=== PATIENT | female | born 1970 | race Caucasian/White ===

== ENCOUNTER → 2017-06-06 | Outpatient (CLI) | payer OTHER ==
--- NOTE | 2017-06-06 14:54 | REPMRS ---
Patient History The patient states she had a clinical breast exam in 06/14 Patient is nulliparous. Family history of prostate cancer in father at age 50 or over, prostate cancer in maternal grandfather at age 50 or over, breast cancer in maternal grandmother at age 50 or over, and prostate cancer in paternal uncle at age 50 or over. Benign cyst aspiration of the left breast, 2005. Digital Woman Screen Mammo: June 06, 2017 - Exam #: [id number] Bilateral CC and MLO view(s) were taken. Technologist: Sondra Fernández, Technologist Prior study comparison: June 05, 2016, digital woman screen mammo performed at [facility]. March 22, 2015, digital woman screen mammo performed at [facility]. December 22, 2013, digital woman screen mammo performed at [facility]. FINDINGS: The breast tissue is heterogeneously dense. This may lower the sensitivity of mammography. There is a moderate amount of heterogeneously dense fibroglandular tissue which is fairly symmetric. There is no interval development of dominant mass, architectural distortion, or clustered microcalcification typical of malignancy. There has been no change in the appearance of the mammogram from the prior studies. ASSESSMENT: BI-RADS/ACR category 1 mammogram. Negative. Recommendation Routine screening mammogram of both breasts in 1 year (for women over age 40). This patient's Lifetime Breast Cancer RIsk is estimated at 19 %. Annual screening Breast MRI scanniing is recommended for patient's whose lifetime risk assessment is over 20%. This mammogram was interpreted with the aid of an FDA-approved computer-aided dectection system. Electronically Signed By: Darnell Ying MD 06/06/17 [id number]
== END ==
LOC: M WHC 10:54
PROVIDERS: ATTEND Nurse Practitioner Women's Health
DX: Z12.31 Encounter for screening mammogram for malignant neoplasm of breast (principal)

== ENCOUNTER → 2018-06-08 | Outpatient (CLI) | payer SELFPAY ==
[2018-06-08 17:27] LABS: HEMATOCRIT 40.9 % (36.0-47.0); HEMOGLOBIN 12.9 g/dl (12.0-15.5); MEAN CORPUSCULAR HEMOGLOBIN 28.4 pg (27.0-33.0); MEAN CORPUSCULAR HGB CONC 31.5 g/dl (32.0-36.5); MEAN CORPUSCULAR VOLUME 90.1 fl (80.0-96.0); PLATELET COUNT, AUTOMATED 475 10^3/uL (150-450); RED BLOOD COUNT 4.54 10^6/uL (4.00-5.40); RED CELL DISTRIBUTION WIDTH 11.9 % (11.5-14.5); WHITE BLOOD COUNT 11.5 10^3/uL (4.0-10.0)
[2018-06-08 17:41] LABS: ALBUMIN 3.2 GM/DL (3.2-5.2); ALBUMIN/GLOBULIN RATIO 0.89 (1.00-1.93); ALKALINE PHOSPHATASE 70 U/L (45-117); ALT/SGPT 26 U/L (12-78); ANION GAP 8 MEQ/L (8-16); AST/SGOT 25 U/L (7-37); BILIRUBIN,TOTAL 0.4 MG/DL (0.2-1.0); BLOOD UREA NITROGEN 13 MG/DL (7-18); CARBON DIOXIDE LEVEL 28 MEQ/L (21-32); CHLORIDE LEVEL 103 MEQ/L (98-107); CREATININE FOR GFR 0.82 MG/DL (0.55-1.30); GLOMERULAR FILTRATION RATE > 60.0 (>58); GLUCOSE, FASTING 72 MG/DL (70-100); POTASSIUM SERUM 4.6 MEQ/L (3.5-5.1); SODIUM LEVEL 139 MEQ/L (136-145); TOTAL PROTEIN 6.8 GM/DL (6.4-8.2)
== END ==
LOC: M WUC 11:51
DX: J90 Pleural effusion, not elsewhere classified (principal); R14.0 Abdominal distension (gaseous)
CPT/HCPCS: 80053

== ENCOUNTER → 2018-06-10 | Outpatient (CLI) | payer SELFPAY | LOC: M RAD 07:10 | DX: R18.8 Other ascites (principal) | CPT/HCPCS: 76705 ==

== ENCOUNTER → 2018-06-11 | Outpatient (CLI) | payer SELFPAY ==
[2018-06-11 12:32] LABS: BASO # 0.1 10^3/uL (0.0-0.2); BASO % 0.7 % (0.0-1.0); EOS # 0.1 10^3/uL (0.0-0.50); EOS % 0.7 % (0.0-3.0); HEMATOCRIT 40.6 % (36.0-47.0); HEMOGLOBIN 12.9 g/dl (12.0-15.5); IMMATURE GRANULOCYTE % 0.6 % (0-3.0); LYMPH # 1.6 10^3/uL (1.5-4.5); LYMPH % 15.7 % (24.0-44.0); MEAN CORPUSCULAR HGB CONC 31.8 g/dl (32.0-36.5); MEAN CORPUSCULAR VOLUME 91.2 fl (80.0-96.0); MONO # 0.8 10^3/uL (0.0-0.8); MONO % 7.8 % (0.0-5.0); NEUTROPHILS # 7.7 10^3/uL (1.8-7.7); NEUTROPHILS % 74.5 % (36.0-66.0); PLATELET COUNT, AUTOMATED 458 10^3/uL (150-450); RED BLOOD COUNT 4.45 10^6/uL (4.00-5.40); WHITE BLOOD COUNT 10.4 10^3/uL (4.0-10.0)
[2018-06-11 12:43] LABS: ALBUMIN/GLOBULIN RATIO 0.86 (1.00-1.93); ALKALINE PHOSPHATASE 63 U/L (45-117); ALT/SGPT 26 U/L (12-78); AMYLASE 42 U/L (25-115); ANION GAP 8 MEQ/L (8-16); AST/SGOT 24 U/L (7-37); BILIRUBIN,TOTAL 0.5 MG/DL (0.2-1.0); BLOOD UREA NITROGEN 12 MG/DL (7-18); CALCIUM LEVEL 8.9 MG/DL (8.5-10.1); CARBON DIOXIDE LEVEL 29 MEQ/L (21-32); CHLORIDE LEVEL 103 MEQ/L (98-107); CREATININE FOR GFR 0.89 MG/DL (0.55-1.30); FREE T4 1.65 NG/DL (0.76-1.46); GLOMERULAR FILTRATION RATE > 60.0 (>58); GLUCOSE, FASTING 74 MG/DL (70-100); LIPASE 108 U/L (73-393); POTASSIUM SERUM 4.7 MEQ/L (3.5-5.1); SODIUM LEVEL 140 MEQ/L (136-145); TOTAL PROTEIN 6.5 GM/DL (6.4-8.2)
[2018-06-11 13:20] LABS: ERYTHROCYTE SEDIMENTATION RATE 45 mm/hr (0-20)
== END ==
LOC: M WUC 08:50
DX: R18.8 Other ascites (principal); R14.0 Abdominal distension (gaseous)
CPT/HCPCS: 82150

== ENCOUNTER → 2018-06-12 | Outpatient (CLI) | payer SELFPAY ==
[~2018-06-12] MED LIST: GASTROGRAFIN SOLUTION 30ML (Q9963) As Ordered; ISOVUE-370 76% 100ML VIAL (Q9967) As Ordered
== END ==
LOC: M RAD 12:07
DX: R93.5 Abnormal findings on diagnostic imaging of other abdominal regions, including retroperitoneum (principal); R18.8 Other ascites
CPT/HCPCS: Q9963

== ENCOUNTER → 2018-06-17 | Outpatient (CLI) | payer SELFPAY | LOC: M RADPRO 13:37 | DX: C56.9 Malignant neoplasm of unspecified ovary (principal) | CPT/HCPCS: 49083 ==

== ENCOUNTER → 2018-07-04 | Outpatient (CLI) | payer SELFPAY ==
[2018-07-04 14:35] LABS: CA19-9 TUMOR MARKER,CARBOHYDRA 7.6 U/ML (<35.0)
[2018-07-04 14:35] LABS: CARCINOEMBRYONIC ANTIGEN < 0.5 NG/ML (<2.5)
== END ==
LOC: M RADPRO 09:05
DX: D39.10 Neoplasm of uncertain behavior of unspecified ovary (principal); R93.89 Abnormal findings on diagnostic imaging of other specified body structures; R18.8 Other ascites; J91.8 Pleural effusion in other conditions classified elsewhere; Z87.891 Personal history of nicotine dependence; Z79.899 Other long term (current) drug therapy
CPT/HCPCS: 49083

== ENCOUNTER → 2018-07-11 | Outpatient (CLI) | payer SELFPAY ==
[~2018-07-11] MED LIST changes: +CALC600T3 PO; +CALC600T60 PO; +CETI10TA PO; +DEXA4TA PO; +FISH100042 PO; -GASTROGRAFIN SOLUTION 30ML (Q9963) As Ordered; -ISOVUE-370 76% 100ML VIAL (Q9967) As Ordered; +OMEP10CASR PO; +OMEP20TA PO; +ONDA8TAB8 PO; +PERCOCET PO; +VITA1TAB48 PO; +VITA200016 PO; +VITA500C24 PO
--- NOTE | 2018-07-11 17:09 | REP ---
Ultrasound-guided paracentesis The procedure was performed under the direct supervision of Dr. Saucedo. The risks and benefits of the procedure were explained to the patient and informed consent was obtained. The largest pocket of fluid was localized in the right lower quadrant using ultrasound guidance. The skin was prepped and draped in a sterile fashion. 1% lidocaine was used as a local anesthetic. An 8-Gibraltarian multi side-hole catheter was inserted using trocar technique. 2200 ml of jaimie colored fluid was withdrawn and discarded. The patient tolerated the procedure well and there were no immediate complications. After the appropriate amount of monitored convalescence the patient was discharged from the department. Reviewed by CHIARA Bass 07/11/2018 04:55 P Electronically Signed by Jake Saucedo MD 07/11/2018 05:00 P
== END ==
LOC: M RADPRO 12:37
PROVIDERS: ATTEND Internal Medicine Hematology & Oncology
DX: R18.8 Other ascites (principal); Z79.899 Other long term (current) drug therapy

== ENCOUNTER → 2018-07-14 | Outpatient (CLI) | payer SELFPAY ==
--- NOTE | 2018-07-14 16:33 | REP ---
Chest x-ray: Two views. History: Ovarian cancer. Comparison study: June 08, 2018. Findings: There are moderate bilateral pleural effusions, considerably larger than at the time of the June 08, 2018 prior study. Heart borders are obscured bilaterally. Pulmonary vasculature is not increased. No infiltrate is seen. Impression: Moderate to large bilateral pleural effusions. These are significantly increased when compared with the June 08, 2018 study. Electronically Signed by Feng Ying MD 07/14/2018 08:15 P
--- NOTE | 2018-07-14 16:41 | REP ---
Limited abdominal sonography: History: Ascites survey. The patient is referred for possible paracentesis. Known ovarian malignancy. Sonographic findings: Abdominal survey demonstrates mild to moderate ascites visualized in the right flank. After discussion with the patient it was decided to postpone the anticipated paracentesis one more day closer to the Faiesk-K-Qfne placement date. Electronically Signed by Feng Ying MD 07/14/2018 08:16 P
[2018-07-14 17:12] LABS: HEMATOCRIT 42.6 % (36.0-47.0); HEMOGLOBIN 13.3 g/dl (12.0-15.5); MEAN CORPUSCULAR HGB CONC 31.2 g/dl (32.0-36.5); MEAN CORPUSCULAR VOLUME 86.6 fl (80.0-96.0); PLATELET COUNT, AUTOMATED 472 10^3/uL (150-450); RED BLOOD COUNT 4.92 10^6/uL (4.00-5.40); WHITE BLOOD COUNT 12.1 10^3/uL (4.0-10.0)
[2018-07-14 17:32] LABS: BLOOD UREA NITROGEN 14 MG/DL (7-18); CALCIUM LEVEL 8.7 MG/DL (8.5-10.1); CARBON DIOXIDE LEVEL 28 MEQ/L (21-32); CHLORIDE LEVEL 102 MEQ/L (98-107); CREATININE FOR GFR 0.69 MG/DL (0.55-1.30); GLOMERULAR FILTRATION RATE > 60.0 (>58); GLUCOSE, FASTING 89 MG/DL (70-100); POTASSIUM SERUM 4.3 MEQ/L (3.5-5.1); SODIUM LEVEL 139 MEQ/L (136-145)
--- NOTE | 2018-07-16 06:13 | ECGEPIP ---
Stationary ECG Study [facility] Test Date: 2018-07-14 Pat Name: AMY PUTNAM Department: Room: - Gender: F [employer]: : [id number] Requested By: Wolfgang James Order Number: [id number] Reading MD: Kait Mallory Measurements Intervals [place] Rate: 106 P: 17 DC: 132 QRS: 29 QRSD: 98 T: 23 QT: 331 QTc: 440 Interpretive Statements SINUS TACHYCARDIA OTHERWISE NORMAL ECG NO PRIOR Electronically Signed On 07-16-2018 6:12:44 EST by Kait Mallory
== END ==
LOC: M RADPRO 15:23
PROVIDERS: ATTEND Thoracic Surgery (Cardiothoracic Vascular Surgery)
DX: R18.8 Other ascites (principal); J91.8 Pleural effusion in other conditions classified elsewhere

== ENCOUNTER → 2018-07-15 | Outpatient (CLI) | payer SELFPAY ==
--- NOTE | 2018-07-15 16:02 | REP ---
Chest x-ray: Two views. History: Status post left thoracentesis. Comparison chest x-ray July 14, 2018. Findings: Moderate right pleural effusion persists, unchanged. There is blunting of the left pleural angles consistent with some persistent left pleural fluid although this is improved. Some atelectasis and air bronchograms are seen in the left base. There is no evidence of pneumothorax. Impression: Bilateral pleural effusions, right greater than left. Improvement noted on the left post left thoracentesis. No pneumothorax seen. Electronically Signed by Feng Ying MD 07/15/2018 04:15 P
--- NOTE | 2018-07-15 17:17 | REP ---
ULTRASOUND GUIDED LEFT THORACENTESIS The procedure was performed under the direct supervision of Dr. Ying. The risks and benefits of the procedure were explained to the patient and informed consent was obtained. The left pleural effusion was localized using ultrasound guidance. The skin was prepped and draped in a sterile fashion. 1% lidocaine was used as a local anesthetic. An 8-Lithuanian multi side-hole catheter was inserted using trocar technique. 935 ml of dark yellow fluid was withdrawn and sent to lab for analysis. The patient tolerated the procedure well and there were no immediate complications. After the appropriate amount of monitored convalescence the patient was discharged from the department. Reviewed by CHIARA Bass 07/15/2018 04:41 P Electronically Signed by Feng Ying MD 07/15/2018 05:08 P
--- NOTE | 2018-07-15 17:17 | REP ---
Ultrasound-guided paracentesis The procedure was performed under the direct supervision of Dr. Ying. The risks and benefits of the procedure were explained to the patient and informed consent was obtained. The largest pocket of fluid was localized in the right flank using ultrasound guidance. The skin was prepped and draped in a sterile fashion. 1% lidocaine was used as a local anesthetic. Using ultrasound guidance an 8-Tamazight multi side-hole catheter was inserted using trocar technique. 2500 ml of yellow fluid was withdrawn and discarded. The patient tolerated the procedure well and there were no immediate complications. After the appropriate amount of monitored convalescence the patient was discharged from the department. Reviewed by CHIARA Bass 07/15/2018 04:32 P Electronically Signed by Feng Ying MD 07/15/2018 05:07 P
== END ==
LOC: M RADPRO 12:44
PROVIDERS: ATTEND Thoracic Surgery (Cardiothoracic Vascular Surgery)
DX: R18.8 Other ascites (principal); J91.8 Pleural effusion in other conditions classified elsewhere; C56.9 Malignant neoplasm of unspecified ovary

== ENCOUNTER 2018-07-16 07:50 | Day surgery (SDC) | payer SELFPAY ==
[2018-07-16] MEDS ORDERED: LIDOCAINE 2% INJ 100 MG/5 ML SDV (FOR ANES.) As Ordered ×2 (08:12)
[2018-07-16] MEDS ORDERED: PROPOFOL 200 MG/20 ML VIAL As Ordered ×2 (08:12)
[2018-07-16] MEDS ORDERED: LR 1,000 ML IV ×2 (08:15→13:00)
[2018-07-16] MEDS ORDERED: MIDAZOLAM INJ 5 MG/ML VIAL (J2250) As Ordered (10:09)
[2018-07-16] MEDS ORDERED: fentaNYL 100 MCG/2 ML INJECTION (J3010) As Ordered (10:09)
[2018-07-16] MEDS: MUPIROCIN 2% OINT 22 GM TUBE TOP (11:14)
[2018-07-16] MEDS: HEPARIN SOD (PORCINE) 5000 UNITS/ML VIAL As Ordered (11:36)
[2018-07-16] MEDS: BUPIVACAINE LIPOSOME/PF 1.3% 20ML VIAL (13.3MG/ML)(EXPAREL)(C9290 PER1MG) As Ordered (11:52)
[2018-07-16] MEDS: LIDOCAINE 1% SDV INJ 30 ML VIAL As Ordered (11:52)
[2018-07-16] MEDS: PERCOCET 5MG/325MG TAB PO (13:00)
[2018-07-16] MEDS ORDERED: ONDANSETRON 4MG/2ML VIAL (J2405) IV (13:00)
[2018-07-16] MEDS ORDERED: FUROSEMIDE 100 MG/10 ML VIAL (J1940) As Ordered (13:02)
== END 2018-07-16 14:15 | disposition home or self-care (01) ==
LOC: M SDC 07:50
DX: C56.1 Malignant neoplasm of right ovary (principal); R18.0 Malignant ascites; J90 Pleural effusion, not elsewhere classified; K21.9 Gastro-esophageal reflux disease without esophagitis; F41.9 Anxiety disorder, unspecified; Z79.899 Other long term (current) drug therapy; Z78.0 Asymptomatic menopausal state; Z87.891 Personal history of nicotine dependence
CPT/HCPCS: 36561

== ENCOUNTER 2018-07-21 11:03 | Observation (INO) | payer SELFPAY ==
[~2018-07-21] VITALS: Ht 165.1 cm; Wt 65.1 kg
[2018-07-21] VITALS (26 sets, daily range): BP systolic 109–136; BP diastolic 71–90
[~2018-07-21 11:03] MED LIST changes: -CALC600T3 PO; -PERCOCET PO
[2018-07-21] MEDS ORDERED: DEXA4TA PO (11:11)
[2018-07-21] MEDS ORDERED: ONDA8TAB8 PO (11:11)
--- NOTE | 2018-07-21 12:16 | REP ---
Clinical: Shortness of breath. Comparison: 07/16/2018. Findings: Yzjtxvzg-hx-bqueh bilateral pleural effusions and lower lobe consolidation/atelectasis appear to have increased from prior examination. No pneumothorax. Skeletal structures intact. Impression: Fkwzceyo-mb-cjtih bilateral pleural effusions with bibasilar opacities increased from prior examination. Electronically Signed by Osito Don MD 07/21/2018 12:08 P
[2018-07-21 13:03] LABS: HEMATOCRIT 37.4 % (36.0-47.0); HEMOGLOBIN 12.1 g/dl (12.0-15.5); MEAN CORPUSCULAR HEMOGLOBIN 27.7 pg (27.0-33.0); MEAN CORPUSCULAR HGB CONC 32.4 g/dl (32.0-36.5); MEAN CORPUSCULAR VOLUME 85.6 fl (80.0-96.0); PLATELET COUNT, AUTOMATED 323 10^3/uL (150-450); RED BLOOD COUNT 4.37 10^6/uL (4.00-5.40)
[2018-07-21 13:18] LABS: WHITE BLOOD COUNT 46.6 10^3/uL (4.0-10.0)
[2018-07-21 13:32] LABS: ALBUMIN 2.2 GM/DL (3.2-5.2); ALT/SGPT 43 U/L (12-78); BILIRUBIN,TOTAL 0.4 MG/DL (0.2-1.0); BLOOD UREA NITROGEN 13 MG/DL (7-18); CALCIUM LEVEL 8.5 MG/DL (8.5-10.1); CARBON DIOXIDE LEVEL 28 MEQ/L (21-32); CHLORIDE LEVEL 104 MEQ/L (98-107); CREATININE FOR GFR 0.62 MG/DL (0.55-1.30); GLOMERULAR FILTRATION RATE > 60.0 (>58); GLUCOSE, FASTING 120 MG/DL (70-100); POTASSIUM SERUM 4.1 MEQ/L (3.5-5.1); SODIUM LEVEL 138 MEQ/L (136-145); TOTAL PROTEIN 5.8 GM/DL (6.4-8.2)
[2018-07-21 14:10] LABS: ATYPICAL LYMPH 2 % (0-5); EOSINOPHILS 1 % (0-5); LYMPHOCYTES 1 % (16-52); MONOCYTES 3 % (0-8); NEUTROPHILS 90 % (35-75)
[2018-07-21 14:12] LABS: DOHLE BODIES 1+; PLATELET ESTIMATE INCREASED (NORMAL); TOXIC GRANULATION 1+; TOXIC VACUOLATION 1+
[2018-07-21] MEDS ORDERED: ISOVUE-370 76% 100ML VIAL (Q9967) As Ordered ONE (14:49)
--- NOTE | 2018-07-21 15:22 | REP ---
Clinical: Acute chest pain. Technique: Axial contrast enhanced images from the thoracic inlet to the upper abdomen using 100 ml Isovue 370 intravenous contrast material with coronal and sagittal re-formations. Findings: Satisfactory enhancement of the pulmonary vasculature is achieved and no filling defects are identified to suggest pulmonary embolus. Large bilateral pleural effusions (right greater than left) with right lower lobe collapse, partial left lower lobe collapse, and right middle lobe atelectasis. Tracheobronchial tree is relatively patent. No pneumothorax. No obvious adenopathy. Thoracic aorta and heart/pericardium appear normal. Surrounding musculoskeletal structures are intact. Impression: 1. No pulmonary embolus. 2. Large pleural effusions complete right lower lobe and partial left lower lobe collapse and right middle lobe atelectasis. Electronically Signed by Osito Don MD 07/21/2018 03:14 P
--- NOTE | 2018-07-21 15:26 | REP ---
Clinical: Shortness of breath. Technique: Axial contrast enhanced images from the lung bases to the pubic symphysis with coronal and sagittal re-formations using 100 ml Isovue 370 intravenous contrast material. Comparison: 06/12/2018. Findings: Eight large bilateral pleural effusions and associated lower lobe collapse. Lofmuwsd-bm-iftgf amount of ascites noted throughout the abdomen and pelvis.. Cervical mental making this appears along with the irregular soft tissue in the pelvis is consistent with malignancy and metastatic disease which appears similar to prior examination. Liver demonstrates few small hepatic cysts which are unchanged. Spleen, pancreas, bilateral adrenal glands and kidneys are normal. There is no evidence for bowel obstruction. No free air. Small scattered abdominal and retroperitoneal lymph nodes are nonspecific. Abdominal aorta and vasculature without aneurysm or dissection. Musculoskeletal structures without focal osseous abnormality. Impression: 1. Presumed malignant ascites with metastatic disease including omental caking and pelvic soft tissue mass. Findings are similar to 06/12/2018. 2. Chronic stable changes. 3. Moderate to large pleural effusions and lower lobe collapse. Electronically Signed by Osito Don MD 07/21/2018 03:18 P
[2018-07-21] MEDS ORDERED: KCL 20MEQ IN D5/NS 1000ML 1,000 ML IV SCH (16:47)
[2018-07-21] MEDS ORDERED: NS 1,000 ML IV SCH (16:57)
[2018-07-21] MEDS ORDERED: PERCOCET 5MG/325MG TAB PO PRN ×2 (17:00)
[2018-07-21] MEDS ORDERED: MORPHINE 4 MG/ML 1ML VIAL/SYRINGE (J2270) IV PRN (17:00)
[2018-07-21] MEDS ORDERED: BISACODYL 10 MG SUPP PR PRN (17:00)
[2018-07-21] MEDS ORDERED: NORCO, ANEXSIA 5/325MG TABLET (HYDROcodone/ACETAMINOPHEN) PO PRN (17:00)
[2018-07-21] MEDS ORDERED: ONDANSETRON 4MG/2ML VIAL (J2405) IV PRN (17:00)
[2018-07-21] MEDS ORDERED: LEVALBUTEROL 1.25 MG/0.5 ML CONCENTRATE NEB NEB PRN (17:00)
[2018-07-21] MEDS ORDERED: ACETAMINOPHEN TAB 650MG DOSE (2X325MG) PO PRN (17:00)
[2018-07-21] MEDS ORDERED: CALC600T3 PO (17:25)
[2018-07-21] MEDS ORDERED: LIDOCAINE 1% MDV 20ML VIAL As Ordered ONE ×3 (17:30→18:33)
[2018-07-21] MEDS ORDERED: MIDAZOLAM INJ 2 MG/2 ML VIAL (J2250) As Ordered ONE ×2 (17:31→18:32)
[2018-07-21 17:38] LABS: LDH LACTATE DEHYDROGENASE 235 U/L (84-246)
--- NOTE | 2018-07-21 18:42 | REP ---
Clinical: Status post thoracentesis. Comparison: 07/21/2018 at 11:56 a.m. Findings: Pleural catheter at the right lung base identified. Gisviqiu-ou-kqjoi bilateral pleural effusions are again noted. Underlying pulmonary vascular congestion and atelectasis. No pneumothorax. Mofjrg-S-Qcok identified with tip in the SVC remains stable. Skeletal structures intact. Impression: Pleural catheter at the right base. Tbidlvjw-is-myksa bilateral pleural effusions along with interstitial edema and atelectasis again noted. Electronically Signed by Osito Don MD 07/21/2018 06:33 P
--- NOTE | 2018-07-21 18:51 | REP ---
Clinical: Status post pleural catheter placement. Technique: Axial noncontrast images from the thoracic inlet to the upper abdomen with coronal and sagittal re-formations. Comparison: 07/21/2018 at 02:53 p.m.. Findings: A catheter is identified via the right lateral lower chest/abdominal wall and its placement either within the right pleural base versus perihepatic subdiaphragmatic location cannot definitively be ascertained. Large right and moderate to large left pleural effusions complete/partial collapse to the right lower lobe and left lower lobe as well as right middle lobe atelectasis remains essentially unchanged. Pulmonary vascular congestion with prominent pulmonary vasculature and mildly increased interstitial markings is similar to prior examination. The tracheobronchial tree is relatively patent. The mediastinum demonstrates essentially normal appearance to the thoracic aorta, and heart/pericardium. Lahssk-Q-Jxve identified via the left chest wall with tip in the SVC/right atrium. Musculoskeletal structures are intact. Impression: 1. Catheter identified with its position either at the right pleural base versus subdiaphragmatic perihepatic space cannot be ascertained due to its proximity to the diaphragm and lack of intravenous contrast enhancement. 2. Pleuroparenchymal findings including pleural effusions, atelectasis and collapse/partial collapse remain stable. Electronically Signed by Osito Don MD 07/21/2018 06:42 P
--- NOTE | 2018-07-21 19:15 | REP ---
Clinical: Placement of Pleurx catheter. Technique: Axial noncontrast images of the abdomen with coronal and sagittal re-formations. Comparison: 07/21/2018. Findings: The Pleurx catheter identified via view right lateral lower thoracic approach appears to be within the subdiaphragmatic location extending inferiorly into the right lower quadrant of the abdomen. There is a subsequent decrease in the ascites as compared to earlier examination. A single focus of free air is identified in a non dependent location anterior to the left lobe of the liver (images 57-61). Liver, spleen, pancreas, gallbladder, bilateral adrenal glands and kidneys are relatively stable. 1 cm hepatic cyst is again identified. Contrast within the renal collecting system is consistent with intravenous contrast administration for prior CT. Diffuse peritoneal carcinomatosis and scattered intra-abdominal soft tissue lesions as well as ill-defined multiloculated/multi septated pelvic mass consistent with the known history of malignancy and metastatic disease. Abdominal aorta without aneurysm. Musculoskeletal structures without focal osseous abnormality. Lung bases demonstrate large pleural effusions and bibasilar consolidation/atelectasis. Impression: 1. Pleurx catheter extends into the right lower quadrant of the abdomen and pelvis. 2. Small subtle focus of pneumoperitoneum likely related to catheter placement as well as subsequent decreased ascites as compared to earlier examination. 3. Remainder of the abdomen is stable including evidence for malignancy and metastatic disease. Electronically Signed by Osito Don MD 07/21/2018 07:06 P
--- NOTE | 2018-07-21 19:24 | REP ---
Clinical: Status post chest tube. Comparison: 07/21/2018 at 06:02 p.m. Findings: Pleurx catheter via right lateral chest wall extends to the right apex and the right pleural effusion is significantly decreased when compared to prior examination. Moderate left pleural effusion is unchanged. Visualized mediastinum and cardiac silhouette are stable. No obvious pneumothorax. Detgcg-G-Tazx with tip in the SVC again noted. Upper abdomen demonstrates original Pleurx catheter overlying the lateral right upper quadrant. Impression: Pleurx catheter extends to the right apex with considerably decreased right pleural effusion. Left effusion remains stable. No obvious pneumothorax. Electronically Signed by Osito Don MD 07/21/2018 07:15 P
[2018-07-21] MEDS ORDERED: MIDAZOLAM INJ 2 MG/2 ML VIAL (J2250) IV ONE (19:45)
[2018-07-21] MEDS: LEVALBUTEROL 1.25 MG/0.5 ML CONCENTRATE NEB NEB SCH (20:00)
[2018-07-21 20:14] LABS: SOURCE, BODY FLUID pH PLEURAL
[2018-07-21] MEDS ORDERED: LIDOCAINE 1% MDV 20ML VIAL SQ ONE (20:15)
[2018-07-21 20:21] LABS: HEMOGLOBIN 12.9 g/dl (12.0-15.5); MEAN CORPUSCULAR HEMOGLOBIN 27.3 pg (27.0-33.0); MEAN CORPUSCULAR HGB CONC 31.5 g/dl (32.0-36.5); MEAN CORPUSCULAR VOLUME 86.7 fl (80.0-96.0); PLATELET COUNT, AUTOMATED 325 10^3/uL (150-450); RED BLOOD COUNT 4.73 10^6/uL (4.00-5.40)
[2018-07-21 20:24] LABS: PLEURAL FL COLOR YELLOW (COLORLESS); SOURCE, BODY FLUID PLEURAL
[2018-07-21 20:25] LABS: APPEARANCE, BODY FLUID HAZY (CLEAR)
[2018-07-21 20:29] LABS: AMYLASE, BODY FLUID 28 U/L (NOT ESTABLISHED); CHOLESTEROL, BODY FLUID < 50 MG/DL (NOT ESTABLISHED); LDH, BODY FLUID 152 U/L (NOT ESTABLISHED); SOURCE, BODY FLUID ALBUMIN PLEURAL; SOURCE, BODY FLUID AMYLASE PLEURAL; SOURCE, BODY FLUID CHOL PLEURAL; SOURCE, BODY FLUID GLUCOSE PLEURAL; SOURCE, BODY FLUID LDH PLEURAL; SOURCE, BODY FLUID TRIG PLEURAL; TRIGLYCERIDE, BODY FLUID 20 MG/DL (NOT ESTABLISHED)
[2018-07-21 20:30] LABS: SOURCE, BODY FLUID TOT PROTEIN PLEURAL; TOTAL PROTEIN, BODY FLUID 3.7 G/DL (NOT ESTABLISHED)
[2018-07-21 20:34] LABS: WHITE BLOOD COUNT 45.1 10^3/uL (4.0-10.0)
[2018-07-21 20:36] LABS: BLOOD UREA NITROGEN 11 MG/DL (7-18); CALCIUM LEVEL 8.9 MG/DL (8.5-10.1); CARBON DIOXIDE LEVEL 30 MEQ/L (21-32); CHLORIDE LEVEL 103 MEQ/L (98-107); GLOMERULAR FILTRATION RATE > 60.0 (>58); GLUCOSE, FASTING 100 MG/DL (70-100); POTASSIUM SERUM 4.7 MEQ/L (3.5-5.1); SODIUM LEVEL 139 MEQ/L (136-145)
[2018-07-21 20:37] LABS: LYMPHOCYTES 5 % (16-52); METAMYELOCYTES 5 % (0-0); MONOCYTES 4 % (0-8); MYELOCYTES 1 % (0-0); NEUTROPHILS 81 % (35-75)
[2018-07-21] MEDS: DOCUSATE SODIUM 100 MG CAP PO SCH (20:37)
[2018-07-21] MEDS: HEPARIN SOD (PORCINE) 5000 UNITS/ML VIAL SC SCH (20:37)
[2018-07-21 20:38] LABS: PLATELET ESTIMATE NORMAL (NORMAL)
[2018-07-22] MEDS: KETOROLAC 30 MG/ML VIAL (J1885) IV SCH ×3 (00:24→11:41)
[2018-07-22] MEDS: LEVALBUTEROL 1.25 MG/0.5 ML CONCENTRATE NEB NEB SCH ×2 (02:00→08:00)
[2018-07-22] MEDS ORDERED: SLF 3 ML SYR IV PRN (04:00)
[2018-07-22 04:45] VITALS: BP 141/88
[2018-07-22 04:59] LABS: HEMATOCRIT 38.7 % (36.0-47.0); MEAN CORPUSCULAR HEMOGLOBIN 27.1 pg (27.0-33.0); MEAN CORPUSCULAR VOLUME 87.6 fl (80.0-96.0); PLATELET COUNT, AUTOMATED 327 10^3/uL (150-450); RED BLOOD COUNT 4.42 10^6/uL (4.00-5.40)
[2018-07-22 05:10] LABS: WHITE BLOOD COUNT 43.9 10^3/uL (4.0-10.0)
[2018-07-22 05:27] LABS: ALT/SGPT 40 U/L (12-78); BILIRUBIN,TOTAL 0.1 MG/DL (0.2-1.0); BLOOD UREA NITROGEN 15 MG/DL (7-18); CALCIUM LEVEL 8.6 MG/DL (8.5-10.1); CARBON DIOXIDE LEVEL 29 MEQ/L (21-32); CHLORIDE LEVEL 103 MEQ/L (98-107); CREATININE FOR GFR 0.73 MG/DL (0.55-1.30); GLOMERULAR FILTRATION RATE > 60.0 (>58); GLUCOSE, FASTING 85 MG/DL (70-100); POTASSIUM SERUM 4.2 MEQ/L (3.5-5.1); SODIUM LEVEL 139 MEQ/L (136-145); TOTAL PROTEIN 5.5 GM/DL (6.4-8.2)
[2018-07-22 05:35] LABS: ATYPICAL LYMPH 3 % (0-5); EOSINOPHILS 1 % (0-5); LYMPHOCYTES 15 % (16-52); METAMYELOCYTES 1 % (0-0); MONOCYTES 3 % (0-8); MYELOCYTES 1 % (0-0); NEUTROPHILS 72 % (35-75); PLATELET ESTIMATE NORMAL (NORMAL)
[2018-07-22 05:36] LABS: DOHLE BODIES 1+
[2018-07-22] MEDS: SLF 3 ML SYR IV SCH ×2 (06:00→14:00)
[2018-07-22 06:11] LABS: ABG BASE EXCESS 3.3 (-2.0-2.0); ABG HCO3 27.9 MEQ/L (22.0-26.0); ABG O2 SATURATION 95.5 % (95.0-99.0); ABG PARTIAL PRESSURE CO2 42.5 mmHg (35.0-45.0); ABG PARTIAL PRESSURE O2 72.3 mmHg (75.0-100.0); ABG STANDARD HCO3 27.4 MEQ/L (22.0-26.0); ABG TOTAL CO2 29.2 MEQ/L (22.0-29.0); ABG pH (ARTERIAL) 7.435 UNITS (7.350-7.450)
[2018-07-22 08:00] VITALS: BP 130/80
[2018-07-22] MEDS ORDERED: CETIRIZINE (ZyrTEC) 10 MG TAB PO PRN (08:00)
[2018-07-22] MEDS ORDERED: KCL 20MEQ IN D5/NS 1000ML 1,000 ML IV SCH (08:00)
--- NOTE | 2018-07-22 08:24 | REP ---
Clinical: Follow up pleural effusions. Technique: PA and lateral. Comparison: 07/21/2018. Findings: Pleurx catheter extends to the right apex. Right pleural effusion is significantly improved when compared to prior examination. Moderate left pleural effusion is relatively stable. Bibasilar atelectasis unchanged. No pneumothorax. Visualized mediastinum and cardiac silhouette stable within normal limits. Skeletal structures intact. Impression: Decreased right pleural effusion. Otherwise relatively stable examination. Electronically Signed by Osito Don MD 07/22/2018 08:16 A
[2018-07-22] MEDS: HEPARIN SOD (PORCINE) 5000 UNITS/ML VIAL SC SCH (08:43)
[2018-07-22] MEDS: DOCUSATE SODIUM 100 MG CAP PO SCH (08:43)
[2018-07-22] MEDS: MOM 30ML SUSPENSION UDC PO SCH ×2 (08:44→09:00)
[2018-07-22] MEDS ORDERED: ASCORBIC ACID 500 MG TAB PO SCH (09:00)
[2018-07-22] MEDS ORDERED: VITAMIN D 1,000 INTERNATIONAL UNITS TABLET PO SCH (09:00)
[2018-07-22] MEDS ORDERED: OMEGA-3 1000MG CAPSULE PO SCH (09:00)
[2018-07-22] MEDS ORDERED: PANTOPRAZOLE 40MG TAB (PROTONIX) PO SCH (09:00)
[2018-07-22] MEDS ORDERED: PERCOCET PO (11:52)
[2018-07-22 12:00] VITALS: BP 122/75
--- NOTE | 2018-07-22 13:09 | HPE ---
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 To note, the patient did have therapeutic paracentesis and thoracentesis on the of this month where 800 mL of fluid was removed from the right pleural space and 2-1/2 liters from her peritoneum. In the ER the patient had a CT of the chest which showed bilateral large pleural effusions with lower lobe collapse. With that Dr. Rich, the thoracic surgeon, was called who will be coming in to put in bilateral chest tubes in the progressive care unit (PCU). She will be admitted for further management. To note, the patient did also start her first round of chemotherapy on this month, June the . Patient at this time is complaining of moderate shortness of breath. No chest pain or palpitations. PAST MEDICAL HISTORY: Again past medical history of stage IV metastatic ovarian carcinoma. ALLERGIES: She has no known drug allergies. FAMILY HISTORY: Noncontributory. SOCIAL HISTORY: Patient denies tobacco, alcohol or illicit drugs. MEDICATIONS AT HOME: - ascorbic acid 500 mg orally daily - calcium carbonate 600 mg orally daily - cetirizine 10 mg orally daily as needed - dexamethasone 4 mg orally daily - omeprazole 20 mg orally daily as needed - Zofran 8 mg orally every 6 hours as needed REVIEW OF SYSTEMS: Negative of all ten major systems except what was mentioned in the history of present illness. PHYSICAL EXAMINATION: VITALS: Blood pressure 118/69, heart rate is 100 and regular, respiratory rate 19, temperature 98.4, oxygen saturation 92% on 2 liters nasal cannula. HEAD: Atraumatic, normocephalic. NECK: Supple. No jugular venous distention (JVD). LUNGS: Have diminished breath sounds in both bases. S1, S2, audible. No murmurs appreciated. ABDOMEN: Distended, positive bowel sounds. EXTREMITIES: No pedal edema. SKIN: Intact. NEUROLOGIC EXAMINATION: Patient awake, alert, and oriented times three. LABS: WBC 46.6, hemoglobin 12.1, hematocrit 37.4, platelets of 323,000. Sodium 138, potassium 4.1, chloride is 104, CO2 is 28, BUN is 13, creatinine is 0.62. Glucose is 120. IMPRESSION: 1. Malignant pleural effusion. PLAN: Patient is to be admitted to the progressive care unit (PCU). I will keep her nothing by mouth and start her on normal saline 100 mL an hour and morphine 2 mg IV every 2 as needed for any pain. Dr. Rich has officially been consulted and will be placing the chest tubes in the PCU and we will follow his input and continue her care in the PCU.
--- NOTE | 2018-07-23 10:23 | IPN ---
DATE: 07/22/2018 SUBJECTIVE: This morning the patient tells me that she is feeling so much better. She is breathing more easily, she is feeling less bloated. She denies any fevers, chills, chest pain, or shortness of breath. OBJECTIVE: VITAL SIGNS: Temperature 98.1, T-max 99.8, pulse 98, respiratory rate 20, blood pressure 130/80, oxygen saturation 94% on room air. GENERAL: She is a middle ages female laying flat in bed at a 30 degree angle. She does not appear to be in any acute distress. HEENT: Cranial nerves II through XII are grossly intact. She has moist mucous membranes. RESPIRATORY: Actually quite clear to auscultation with some diminished breath sound at the bases bilaterally. ABDOMINAL EXAM: Bowel sounds are present. The abdomen is soft, nondistended. EXTREMITIES: No clubbing, cyanosis, or edema. LABORATORY STUDIES: WBC 43.9, hemoglobin 12.0, platelet count 327. She does have positive metamyelocytes and myelocytes with atypical lymphocytes. Chemistry panel - sodium 139, potassium 4.2, chloride 103, bicarb 29, BUN 15, creatinine 0.7. She has a mildly elevated AST at 42 and alkaline phosphatase of 167. Arterial blood gas yesterday revealed a pH of 7.4, pCO2 of 42.5 and a pO2 of 72.3. Microbiology is currently pending. The patient had numerous imaging studies. She most recently had a chest x-ray this morning that revealed decreased right pleural effusion. ASSESSMENT/PLAN: This is a 47-year-old female who presented with right sided pleural effusion and ascites. PROBLEMS: 1. Right sided pleural effusion and ascites. Please note at the time of this dictation there is no consultation or history and physical available for review, nor has there been any. The patient is feeling significantly better. Upon review of the record, it appears as though her significant fluid was related to malignant ascites, likely causing malignant pleural effusion, right side as well. It appears as though Dr. Rich has adequately drained the lung as well as placed a PleurX catheter in the abdomen for draining of her recurrent ascites. I did have a lengthy discussion with the patient as her ovarian cancer is a relatively new diagnosis. She only learned about it in May. I did ask her today if she knew that it was stage IV as per Dr. Bradshaw's last notes and the patient did not know this. I did discuss with the patient that it appears that her cancer is progressing quite aggressively and producing a significant amount of fluid. We spoke in broad terms about full code, DNR, DNI, and comfort measures only. I allowed her time to ask questions. I did tell her that I would suspect her prognosis to be quite poor given that she has just started chemotherapy and her condition is worsening, but did encourage her to continue with chemotherapy and oncology evaluations at this time being it appears as though she is improved. Will follow-up her cultures, follow-up thoracic surgery's recommendations. For the time being, she is continued on Decadron, Protonix. 2. Stage IV metastatic ovarian cancer. She was admitted for IV pain control. She recently started Taxol for chemotherapy. She was also on Neulasta as well as Decadron which are the likely etiologies for her significantly elevated leukocytosis. For now I will continue to monitor. Continue with Decadron. Hold off on any further Neulasta. Follow-up with oncology. 3. Seasonal allergies. Continue with Zyrtec. DISPOSITION: Pending her clinically improvement. Possibly home as early as tomorrow after a brief observation period. Her prognosis is guarded.
--- NOTE | 2018-07-23 10:59 | DSES ---
DATE OF ADMISSION: 07/21/2018 DATE OF DISCHARGE: 07/22/2018 Please see progress note from today for full details. DISCHARGE DIAGNOSIS: Malignant ascites. SECONDARY DIAGNOSES: 1. Malignant pleural effusion. 2. Stage IV ovarian cancer. 3. Vitamin D deficiency. 4. Seasonal allergies. HOSPITAL COURSE: The patient is a 47-year-old female with known stage IV metastatic ovarian cancer, who recently started chemotherapy with Dr. Bradshaw, who presented with shortness of breath and bloating. She was seen by Dr. Rich, who completed a right-sided thoracentesis as well as a paracentesis with placement of PleurX catheter. She did have prompt improvement of her symptoms. She had significant imaging completed. Please refer to medical records for full details. She tolerated the procedures well and felt very well the next morning, up and ambulating independently and has complete resolution of her symptoms. The PleurX was kept in place. The plan is for her to be discharged home today with close followup with Dr. Rich, Dr. Bradshaw, and her primary care provider as well as we have set up for home health to help her with teaching and draining of the PleurX catheter for the first two times that she needs to do this. Thought process is that this is likely to recur and we wish to get her home and back to chemotherapy as soon as possible to give her the best chance of surviving her malignancy. She is being discharged home under the care of her . She will followup with Dr. Rich in 2 weeks, followup with oncology as soon as possible, followup with her primary care provider within 7 days. Her activity is as tolerated. Her diet is as prior to admission. She is to return to the emergency room (ER) if symptoms worsen. MEDICATIONS AT THE TIME OF DISCHARGE: - Percocet 5/325 one tablet every 4 hours as needed for pain, quantity 18 - vitamin C 500 mg daily - calcium carbonate 600 mg daily - cetirizine 10 mg daily as needed for allergies - dexamethasone 4 mg daily - Drummond-3 1 capsule daily - omeprazole 20 mg daily - Zofran 8 mg every 6 hours as needed for nausea - vitamin B complex one tablet daily - vitamin D 2000 units daily Greater than 30 minutes when organizing a safe disposition and discussing goals of care. MTDD
--- NOTE | 2018-07-24 11:54 | CR ---
DATE OF CONSULTATION: 07/21/2018 The patient was seen at the request of the emergency room and hospitalist service for increasing shortness of breath with bilateral pleural effusions and ascites. HISTORY OF PRESENT ILLNESS: Patient is a 47-year-old white female who was diagnosed with stage IV ovarian carcinoma on May of this year. She initially presented with fatigue, bloating and distension. She has had two paracenteses, her last one being on 07/15/2018, with removal of 2.5 liters. Today, she returns to the emergency room complaining of increasing shortness of breath. She has had also thoracentesis also on the at the time of her paracentesis and just before having a Infusaport placed. As noted above, she has become more short of breath over the last 24 hours with orthopnea. She has had a cough without sputum production. She feels more fatigued and her abdomen is becoming more distended. She had her first round of chemotherapy on through her Infusaport. There has been no dysphagia and other than the discomfort of not being able to take a deep breath, there is no sharp chest pain. PAST MEDICAL ILLNESSES: Only her ovarian cancer. PRIOR SURGERIES: None. HABITS: Former smoker. Stopped in 1989 and had a 10-year pack history of 1 pack per day. Rate alcohol intake. No illicit drugs. TRAVEL HISTORY: She traveled to [facility] and to [place]. FAMILY HISTORY: Father is secondary to diabetes and prostate cancer. Mother is alive. ALLERGIES: No known medication allergies. REVIEW OF SYSTEMS: Constitutional: No fever chills or sweats. Eyes: Without amaurosis fugax, without diplopia. She wears reading glasses. There is no prior jaundice. Nose: Without epistaxis. Mouth: Has her own teeth. Cardiac: Without prior myocardial infarction. Does have bilateral edema that she has noted. She denies angina, claudication, hypertension. Respiratory: See History of present illness (HPI). GI: Complains of constipation and heartburn but without nausea and vomiting. Does have bloating as noted above in the physical and no malignant ascites. No hematemesis, melena or hematochezia. : Without dysuria, hematuria, or prior renal stones. Neurologic: Without parestheisas, paralyses or transient monocular blindness. Without prior seizures. Psychiatric: Without pathological anxieties, depression or psychoses. Endocrine: Without diabetes or thyroid disease. PHYSICAL EXAMINATION: A well-developed, well-nourished white female with acute dyspnea. Unable to speak in complete sentences. VITAL SIGNS: Temperature 98.4, heart rate 120, respiratory rate of 22 without the use of accessory muscles. She is 92% saturation on 2 liters nasal cannula and her blood pressure is 118/69. Eyes: Pupils equal, round, react to light. Extraocular muscles intact. Sclerae are anicteric. Mouth shows mucous membranes to be pink and moist, lips and commissures without lesions. There is no oral thrush and her dentition is in good repair. Head is normocephalic. Neck is supple. There is no jugular venous distention. No subcutaneous emphysema. Trachea is midline. Lungs show markedly decreased breath sounds about the right and left with percussion note that is dull mcc up the right side and one-third of the way up the left side. I hear E:A egophony on both sides. Cardiac exam shows her to be tachycardic without murmurs, clicks, gallops or rubs. I cannot feel her point of maximum impulse (PMI). S1, S2 are normal. Abdomen: Distended with a clear ascitic fluid wave. Bowel sounds are present but hypoactive. I cannot appreciate hepatomegaly. There is no costovertebral angle (CVA) tenderness. Extremities show bilateral pretibial edema 1+. There is no calf tenderness. No differential swelling of the upper extremities. Skin is warm, dry and perfused without cyanosis or mottling including that of the nail beds and knees. Neuro shows II through XII II-XII intact along with gross motor and gross sensation intact. Gait is not tested. Psychiatric showed her to be awake, alert and oriented times three with appropriate and affect and appropriately anxious from her shortness of breath. Her white count is 46.6 secondary to injection of Neulasta on 07/17/2018 after chemotherapy. Hemoglobin and hematocrit are 12.1 and 37.4 with a platelet count of 323. Differential shows 90% neutrophils, 3% bands, 1% lymphocytes, 3% monocytes and 1% eosinophils. She has a 1+ toxic granulations and vacuolizations. Her chemistries show normal electrolytes with a BUN and creatinine of 13 and 0.62, a glucose of 120 with a calcium of 8.5. AST and ALT are 52 and 43 respectively. Albumin is 2.2. Her chest x-ray shows bilateral pleural effusions with opacities in both right and left sides, left greater than the right. It is done portably and there is no lateral film. CT angio of her chest confirms the bilateral pleural effusions with the right much greater than the left. She has a large amount of ascites. She has a liver cyst, but I do not see liver metastases. Pancreas has a normal configuration. Adrenals also have a normal configuration. There is no pericardial effusion. There is no mediastinal lymphadenopathy. She has compression atelectasis of both right and left lower lobes with the right greater than the left. The middle lobe is also compressed on the right side. I do not see emphysematous changes on the portion of the lungs that are inflated. IMPRESSION: 1. Ovarian cancer, stage IV. 2. Bilateral pleural effusions right greater than left. 3. Ascites. 4. Leukocytosis secondary to Neulasta. 5. Pending respiratory failure secondary to pleural effusions and to ascites. PLAN/DISCUSSION: She has been tapped multiple times on the right side and I will therefore place a PleurX catheter as that is the side that has more effusion. She may need bilateral PleurX catheters. It would be also advantageous to do a paracentesis on her. She is at risk for post-expansion pulmonary edema and we will closely watch her in the progressive care unit (PCU) after placement of the pleural catheter and after lung expansion.
--- NOTE | 2018-07-24 20:14 | RO ---
DATE OF PROCEDURE: 07/21/2018 PREPROCEDURE DIAGNOSIS: Pleural effusion, peritoneal ascites. POSTPROCEDURE DIAGNOSIS: Pleural effusion, peritoneal ascites. PROCEDURE: Insertion of peritoneal catheter. SURGEON: Dr. Wolfgang Rich CAMPGROUND MANAGER: ANESTHESIA: DESCRIPTION OF PROCEDURE: Under satisfactory moderate sedation, the patient was prepped and draped in the usual sterile fashion. The intercostal space over the approximate 7th rib was infiltrated with 1% lidocaine. A needle was placed, and a wire was placed. A tunnel was created between the wire site and the abdominal wall. Tract was dilated and a PleurX catheter was placed without difficulty. The catheter was then secured to the chest wall with a #3-0 silk suture, and the catheter incision was closed with a running #4-0 Monocryl subcuticular suture. The patient was drained of 2 liters of fluid, which was clear. It was noted that her abdomen which was markedly distended preprocedure became less distended. It was felt that the catheter was within the peritoneal cavity. As she had malignant ascites along with a pleural effusion, it was decided to leave the catheter in place. The patient was then sent for a CT scan to ascertain the exact position of the catheter. The patient tolerated the procedure well. A chest x-ray is pending. [facility]
--- NOTE | 2018-07-24 20:16 | RO ---
DATE OF PROCEDURE: 07/21/2018 PREPROCEDURE DIAGNOSIS: Right pleural effusion. POSTPROCEDURE DIAGNOSIS: Right pleural effusion. PROCEDURE: Insertion of PleurX catheter through the 5th intercostal space. SURGEON: Dr. Wolfgang Rich ADOPTION MANAGER: ANESTHESIA: DESCRIPTION OF PROCEDURE: Under satisfactory moderate sedation achieved with 3 mg of Versed, the patient was prepped and draped in the usual sterile fashion. The posterior axillary line was infiltrated with 1% lidocaine in and around the 5th intercostal space below the inframammary fold. Explorer needle was placed with production again of clear fluid. Wire was placed. The previously placed peritoneal catheter was then removed, and the previous incision was used for the pleural catheter. A tunnel was created, and the PleurX catheter pulled through the tunnel. The wire tract was dilated and a peel-away introducer placed. PleurX catheter was then introduced into the chest with production of 1 liter of clear fluid. The catheter was again secured to the abdominal wall with a #3-0 silk suture, and the skin was closed with a running #4-0 Monocryl subcuticular suture. The patient tolerated the procedure well and a chest x-ray is pending.
== END 2018-07-22 15:32 | disposition home or self-care (01) ==
LOC: M ED 11:03 → M ED INP 16:57 → M PCU 17:12
PROVIDERS: ADMIT Internal Medicine; ATTEND Internal Medicine
DX: R18.0 Malignant ascites (principal); J91.0 Malignant pleural effusion; C56.9 Malignant neoplasm of unspecified ovary; E55.9 Vitamin D deficiency, unspecified; Z79.899 Other long term (current) drug therapy
CPT/HCPCS: 36415; 36600; 71045; 71046; 71250; 71275; 74150; 80053; 82042; 82150; 82465; 82803; 82945; 83615; 83986; 84157; 84478; 85025; 87070; 87075; 87077; 87102; 87116; 87186; 87205; 87206; 88108; 88305; 88313; 89051; 96372; 96374; 96375; 96376; 99284; J1885; J2250; Q9967

== ENCOUNTER → 2018-08-11 | Outpatient (CLI) | payer OTHER ==
[~2018-08-11] MED LIST changes: +ALPR0.5T3 PO; +CALC600T3 PO; +PERCOCET PO
--- NOTE | 2018-08-11 11:21 | REP ---
CHEST X-RAY: Two views. HISTORY: Pleural effusion. FINDINGS: A right-sided PleurX drainage catheter is noted in place posterosuperiorly unchanged from July 22, 2018 study. There is a small right pleural effusion visible. There is blunting of the left pleural angles and a small left effusion is also noted. Some of this is in a subpulmonic distribution above the gastric air bubble. A Udolca-K-Dinz catheter is noted in place via the left side with its tip in the expected location of the SVC right atrial junction. IMPRESSION: Bilateral pleural effusions with a right-sided PleurX catheter. Scllar-P-Amxv catheter. There is some improvement in the pleural effusions since the July 22, 2018 study. Electronically Signed by Feng Ying MD 08/11/2018 08:11 P
== END ==
LOC: M SMT 09:21
PROVIDERS: ATTEND Thoracic Surgery (Cardiothoracic Vascular Surgery)
DX: J90 Pleural effusion, not elsewhere classified (principal)

== ENCOUNTER → 2018-08-14 | Outpatient (CLI) | payer OTHER ==
--- NOTE | 2018-08-14 18:08 | REP ---
Ultrasound-guided paracentesis The procedure was performed under the direct supervision of Dr. Ying. The risks and benefits of the procedure were explained to the patient and informed consent was obtained. The largest pocket of fluid was localized in the right flank using ultrasound guidance. The skin was prepped and draped in a sterile fashion. 1% lidocaine was used as a local anesthetic. An 8-Tajik multi side-hole catheter was inserted using trocar technique. 1200 ml of yellow fluid was withdrawn and discarded. The patient tolerated the procedure well and there were no immediate complications. After the appropriate amount of monitored convalescence the patient was discharged from the department. Reviewed by CHIARA Bass 08/14/2018 04:10 P Electronically Signed by Feng Ying MD 08/14/2018 05:59 P
== END ==
LOC: M RADPRO 10:57
PROVIDERS: ATTEND Internal Medicine Hematology & Oncology
DX: R18.0 Malignant ascites (principal); C56.9 Malignant neoplasm of unspecified ovary

== ENCOUNTER → 2018-08-21 | Outpatient (CLI) | payer OTHER ==
--- NOTE | 2018-08-26 07:26 | MEDONC ---
HEMATOLOGY ONCOLOGY PROGRESS NOTE DATE OF SERVICE: 07/30/2018 HISTORY OF PRESENT ILLNESS: This is a very pleasant young woman who has history of ovarian carcinoma who was on neoadjuvant Taxol and Carboplatinum. She had developed ascites and the concern was the frequency of which she needed to have this done. She had been concerned as she had seen the hospitalist in the interval since her last visit and was told to "put her affairs in order". She since then has had some modest improvement in the ascites, but still not at a point where it has been comfortable for her. She since then has had a Port-A-Cath placed and has had no signs of any erythema. She tolerated that procedure well. She also he had a pleural drain put in by Dr. Rich in the interval since her last visit due to some pleural fluid. She has been breathing easier and has less shortness of breath. Her sisters are here with her for her visit as well. PAST MEDICAL, SURGICAL AND FAMILY HISTORY: Have remained unchanged since her office date of 07/08/2018 with the exception of the placement of the pleural catheter. Her medications includ: - ascorbic acid 500 mg by mouth daily - calcium carbonate 600 mg daily - vitamin D - omega acids - dexamethasone 20 mg p.o. 12 hours and 20 mg 6 hours prior to Taxol chemotherapy. - She is on ondansetron 4 mg p.o. q.6 h p.r.n. ALLERGIES: The patient has no drug allergies. REVIEW OF SYSTEMS: She is tired, fatigued, shortness of breath improved after her pleural catheter. No pain at the pleural catheter site. Generalized weakness and fatigue remains. Appetite is fair. No numbness or tingling of the fingertips and toes and the remainder of the 12-point review of systems is negative. PHYSICAL EXAMINATION: Her appearance is somewhat sallow. Her ECOG is about 2/4. Her temperature is 98. Her pulse is 89, respiratory rate is 18, BP is 127/87, pulse oximetry is 93%. HEENT is normocephalic, atraumatic. PERRL. EOMI. Sclerae is otherwise white, nonicteric. Oropharynx is otherwise clear. Neck is supple. No adenopathy. Chest: Slightly decreased breath sounds at the bases. Cardiovascular: S1 and S2 are appreciated with no murmurs. Her abdomen is otherwise slightly distended. Some freely flowing ascites remain, however, it is less tense. Extremities show about +1 pitting edema. Laboratories are currently pending. IMPRESSION: 1. Improved breathing since thoracentesis and placement of the pleural catheter. 2. Stage IV ovarian carcinoma currently on a plan of neoadjuvant chemotherapy to assess for disease response. PLAN: Continue the chemotherapy as scheduled. I have had a discussion with the patient and her sister regarding the expectation of the pleural fluid and the ascites. I have advised them that it is still early in the process to expect any results and that hopefully we will be able to decrease the frequency of her paracentesis. The patient will be following up with us to check for any kind of anand counts and continue chemotherapy as per schedule. Electronically Signed by Meg Bradshaw MD 08/26/2018 07:56 A DD: Meg Bradshaw MD 08/25/2018 04:10 P DT: brionna 08/26/2018 07:15 A CC:
== END ==
LOC: M RADPRO 10:39
PROVIDERS: ATTEND Internal Medicine Hematology & Oncology
DX: C56.9 Malignant neoplasm of unspecified ovary (principal); R18.0 Malignant ascites; Z53.20 Procedure and treatment not carried out because of patient's decision for unspecified reasons

== ENCOUNTER → 2018-09-04 | Outpatient (CLI) | payer OTHER ==
[~2018-09-04] MED LIST changes: +EMLA CREAM 5GM (LIDOCAINE/PRILOCAINE) As Ordered ONE; +GASTROGRAFIN SOLUTION 30ML (Q9963) As Ordered ONE; +ISOVUE-370 76% 100ML VIAL (Q9967) As Ordered ONE
--- NOTE | 2018-09-05 06:09 | REP ---
Clinical: Ovarian cancer for restaging and response to chemotherapy. Technique: Axial contrast enhanced images from the lung bases to the pubic symphysis using oral (per protocol) and 100 ml Isovue 370 intravenous contrast material with delayed images of the abdomen as well as coronal and sagittal re-formations. Comparison: 07/21/2018. Findings: Moderate left and small right pleural effusions with associated bibasilar atelectasis appears to be improved compared to prior examination. Suggestions for a right-sided pleural catheter along the posterior periphery of the visualized right hemithorax. Large complex cystic/septated pelvic mass with elements of soft tissue primarily along the posterior aspect of the mass lesion is again identified and similar to prior examination however overall size of the lesion may be slightly increased with increased fluid volume. Exact size of mass is difficult to quantify due to the multicystic appearance and difficulty in identifying actual borders due to a moderate amount of abdominopelvic ascites which itself may be slightly decreased when compared to prior examination. There also appears to be omental caking along the periphery of the abdomen which subjectively appears increased from prior examination with the greatest thickness now measuring 4.7 cm previously measuring 4.2 cm at approximately the same level (image 57). Liver demonstrates stable 1 cm cyst in the anterior segment right lobe and subcentimeter cystic area along the posterior apical right lobe (image 24) which may represent small cysts. No further hepatic lesion identified. Spleen, pancreas, gallbladder, bilateral adrenal glands and kidneys are normal. The enteric system is without obstruction or acute inflammatory process. No free air. No significant retroperitoneal adenopathy. Abdominal aorta and vasculature without aneurysm or dissection. Surrounding osseous structures are intact without focal osseous abnormality. Impression: 1. The large complex cystic mass in the pelvis subjectively appears more voluminous and slightly enlarged compared to prior examination although nodular soft tissue components appear similar. 2. Metastatic omental caking appears to be increased from prior examination. 3. Moderate but decreased ascites noted. 4. Lung bases demonstrate decreased ascites and atelectasis. Electronically Signed by Osito Don MD 09/05/2018 06:01 A
== END ==
LOC: M RAD 12:55
PROVIDERS: ATTEND Internal Medicine Hematology & Oncology
DX: C56.9 Malignant neoplasm of unspecified ovary (principal)
CPT/HCPCS: 74177; Q9963; Q9967

== ENCOUNTER → 2018-09-04 | Outpatient (CLI) | payer OTHER ==
[~2018-09-04] MED LIST changes: -EMLA CREAM 5GM (LIDOCAINE/PRILOCAINE) As Ordered ONE; -GASTROGRAFIN SOLUTION 30ML (Q9963) As Ordered ONE; -ISOVUE-370 76% 100ML VIAL (Q9967) As Ordered ONE
--- NOTE | 2018-09-05 02:50 | REP ---
Clinical: Ascites. Technique: Real time almanza scale ultrasound examination using curved array transducer. Findings: A mild amount of ascites is appreciated along with complex septated cystic mass making paracentesis unsafe. Impression: Complex cystic mass in the pelvis. Small amount of ascites. Paracentesis not performed. Electronically Signed by Osito Don MD 09/05/2018 02:42 A
== END ==
LOC: M RADPRO 12:53
PROVIDERS: ATTEND Internal Medicine Hematology & Oncology
DX: R18.0 Malignant ascites (principal); C56.9 Malignant neoplasm of unspecified ovary; Z53.8 Procedure and treatment not carried out for other reasons

== ENCOUNTER → 2018-09-11 | Outpatient (CLI) | payer OTHER ==
--- NOTE | 2018-09-11 09:20 | REP ---
PA and lateral chest: Comparison is 08/11/2018. There are bilateral pleural effusions. There is a right thoracotomy tube, unchanged. The left pleural effusion has increased in size. The right pleural effusion is unchanged. There is a left subclavian central venous catheter with the tip in the right atrium, unchanged. Visualized lung naqvi are clear. Cardiac size cannot be assessed, the cardiac margins are obscured by the pleural effusions. Impression: Persisting bilateral pleural effusions. The left pleural effusion has increased. The right thoracotomy tube is unchanged. Electronically Signed by Jake Millard MD 09/11/2018 09:11 A
== END ==
LOC: M SMT 08:14
PROVIDERS: ATTEND Thoracic Surgery (Cardiothoracic Vascular Surgery)
DX: C56.9 Malignant neoplasm of unspecified ovary (principal)

== ENCOUNTER → 2018-09-11 | Outpatient (CLI) | payer OTHER ==
[2018-09-11 12:46] LABS: BASO # 0.1 10^3/uL (0.0-0.2); BASO % 0.1 % (0.0-1.0); HEMATOCRIT 36.8 % (36.0-47.0); HEMOGLOBIN 11.8 g/dl (12.0-15.5); LYMPH # 1.9 10^3/uL (1.5-4.5); LYMPH % 5.6 % (24.0-44.0); MEAN CORPUSCULAR HEMOGLOBIN 29.1 pg (27.0-33.0); MEAN CORPUSCULAR HGB CONC 32.1 g/dl (32.0-36.5); MEAN CORPUSCULAR VOLUME 90.6 fl (80.0-96.0); MONO # 0.6 10^3/uL (0.0-0.8); MONO % 1.9 % (0.0-5.0); NEUTROPHILS % 86.3 % (36.0-66.0); PLATELET COUNT, AUTOMATED 243 10^3/uL (150-450); RED BLOOD COUNT 4.06 10^6/uL (4.00-5.40)
--- NOTE | 2018-09-11 13:40 | REP ---
Limited abdomen ultrasound for evaluation of ascites: Ultrasonography of all four quadrants is performed. There is a trace volume of ascites. The volume is too small for drainage. Electronically Signed by Jake Millard MD 09/11/2018 01:31 P
[2018-09-11 13:41] LABS: NEUTROPHILS # 28.9 10^3/uL (1.8-7.7); WHITE BLOOD COUNT 33.5 10^3/uL (4.0-10.0)
== END ==
LOC: M RADPRO 10:48
PROVIDERS: ATTEND Internal Medicine Hematology & Oncology
DX: R18.0 Malignant ascites (principal); C56.9 Malignant neoplasm of unspecified ovary

== ENCOUNTER → 2018-09-11 | Outpatient (CLI) | payer OTHER ==
[2018-09-11 12:07] LABS: APPEARANCE, BODY FLUID HAZY (CLEAR); PLEURAL FL COLOR PALE YELLOW (COLORLESS); SOURCE, BODY FLUID PLEURAL
[2018-09-11 12:30] LABS: PH BODY FLUID 7.734 UNITS (NOT ESTABLISHED); SOURCE, BODY FLUID pH PLEURAL
[2018-09-11 12:45] LABS: AMYLASE, BODY FLUID 33 U/L (NOT ESTABLISHED); SOURCE, BODY FLUID AMYLASE PLEURAL; SOURCE, BODY FLUID GLUCOSE PLEURAL; SOURCE, BODY FLUID TOT PROTEIN PLEURAL; TOTAL PROTEIN, BODY FLUID 4.6 G/DL (NOT ESTABLISHED)
--- NOTE | 2018-09-11 14:11 | REP ---
CHEST, TWO VIEWS: Two views of the chest are performed status post left thoracentesis. Comparison made with prior study the same day. There is no pneumothorax. There is a decreased amount of left pleural fluid. There is some mild persistent blunting of the left costophrenic angle. Right chest tube remains in place. There is a small amount of right pleural fluid or thickening. There is some minimal streaky atelectasis or infiltrate in the lung bases. Cardiomediastinal silhouette is unchanged. A left central venous catheter is again noted. Electronically Signed by Jake Saucedo MD 09/12/2018 10:20 A
[2018-09-11 20:59] LABS: LDH, BODY FLUID 177 U/L (NOT ESTABLISHED); SOURCE, BODY FLUID LDH PLEURAL
--- NOTE | 2018-09-12 15:22 | REP ---
ULTRASOUND GUIDED LEFT THORACENTESIS The procedure was performed under the direct supervision of Dr. saucedo. The risks and benefits of the procedure were explained to the patient and informed consent was obtained. The left pleural effusion was localized using ultrasound guidance. The skin was prepped and draped in a sterile fashion. 1% lidocaine was used as a local anesthetic. An 8-Libyan multi side-hole catheter was inserted using trocar technique. 550 ml of jaimie colored fluid was withdrawn and sent to the lab for analysis. The patient tolerated the procedure well and there were no immediate complications. After the appropriate amount of monitored convalescence the patient was discharged from the department. Reviewed by CHIARA Bass 09/11/2018 05:17 P Electronically Signed by Jake Saucedo MD 09/12/2018 03:13 P
== END ==
LOC: M RADPRO 11:02
PROVIDERS: ATTEND Thoracic Surgery (Cardiothoracic Vascular Surgery)
DX: C56.9 Malignant neoplasm of unspecified ovary (principal); J91.0 Malignant pleural effusion

== ENCOUNTER → 2018-10-02 | Outpatient (CLI) | payer OTHER ==
--- NOTE | 2018-10-02 21:13 | REP ---
Clinical: Follow up pleural effusion. Technique: PA and lateral. Comparison: 09/11/2018. Findings: Right-sided chest tube unchanged. Left-sided [id number] with tip in the right atrium. Bilateral moderate pleural effusions (left greater than right) have increased from prior examination. Associated lower lobe passive atelectasis suggested. No pneumothorax identified. Skeletal structures are intact. Impression: Moderate bilateral pleural effusions (left greater than right) have increased. Electronically Signed by Osito Don MD 10/02/2018 09:04 P
== END ==
LOC: M SMT 08:41
PROVIDERS: ATTEND Thoracic Surgery (Cardiothoracic Vascular Surgery)
DX: J90 Pleural effusion, not elsewhere classified (principal)

== ENCOUNTER → 2018-10-03 | Outpatient (CLI) | payer OTHER ==
--- NOTE | 2018-10-03 14:00 | REP ---
CHEST, TWO VIEWS: Two views of the chest performed status post left thoracentesis. COMPARISON: 10/02/2018 There is significant decrease in the left pleural effusion with apparent very mild residual left pleural fluid remaining. There is a small right effusion. Right pleural drainage catheter is seen. Left central venous catheter is seen with the tip in the right atrium. The heart is not enlarged. Mediastinal silhouette is unchanged. IMPRESSION: No pneumothorax status post left thoracentesis. Significant decrease in the amount of left pleural fluid. Electronically Signed by Jake Saucedo MD 10/06/2018 11:26 A
--- NOTE | 2018-10-03 16:44 | REP ---
ULTRASOUND GUIDED LEFT THORACENTESIS The procedure was performed under the direct supervision of Dr. saucedo. The risks and benefits of the procedure were explained to the patient and informed consent was obtained. The left pleural effusion was localized using ultrasound guidance. The skin was prepped and draped in a sterile fashion. 1% lidocaine was used as a local anesthetic. An 8-Pashto multi side-hole catheter was inserted using trocar technique. 735 ml of low viscosity red colored fluid was withdrawn and discarded. The patient tolerated the procedure well and there were no immediate complications. After the appropriate amount of monitored convalescence the patient was discharged from the department. Reviewed by CHIARA Bass 10/03/2018 03:18 P Electronically Signed by Jake Saucedo MD 10/03/2018 04:35 P
== END | disposition home or self-care (01) ==
LOC: M RADPRO 12:47
PROVIDERS: ATTEND Thoracic Surgery (Cardiothoracic Vascular Surgery)
DX: J90 Pleural effusion, not elsewhere classified (principal)

== ENCOUNTER → 2018-10-03 | Outpatient (CLI) | payer OTHER ==
[~2018-10-03] MED LIST changes: +LIDOCAINE 2% MDV 20 ML VIAL As Ordered ONE
--- NOTE | 2018-10-03 14:03 | REP ---
LIMITED ABDOMINAL ULTRASOUND: Limited abdominal ultrasound is performed to evaluate for ascites prior to a scheduled paracentesis. Only a very small amount of ascites fluid is seen in the abdomen and pelvis. There would be no therapeutic benefit to paracentesis and therefore the paracentesis procedure is postponed. Electronically Signed by Jake Saucedo MD 10/06/2018 11:35 A
== END ==
LOC: M RADPRO 12:44
PROVIDERS: ATTEND Internal Medicine Hematology & Oncology
DX: R18.8 Other ascites (principal)

== ENCOUNTER → 2018-10-23 | Outpatient (CLI) | payer OTHER ==
[~2018-10-23] MED LIST changes: -LIDOCAINE 2% MDV 20 ML VIAL As Ordered ONE; +LORA0.5T11 PO; +REGL5TAB2 PO
--- NOTE | 2018-10-23 11:49 | REP ---
CHEST X-RAY: TWO VIEWS. HISTORY: Pleural effusion. COMPARISON CHEST X-RAY: October 03, 2018 FINDINGS: A Pleurx catheter is again noted in place in the right pleural space coursing inferiorly and laterally off the edge of the film. There is some blunting of the right lateral pleural angle. There is a left pleural effusion as well producing pleural angle blunting. This is larger than the right. A left-sided Mupimf-L-Mwhb catheter is noted in place. Lung naqvi are otherwise clear. Heart is not enlarged. IMPRESSION: Bilateral small pleural effusions, left larger than right. The left pleural effusion has increased somewhat since the October 03, 2018 prior radiograph. Electronically Signed by Feng Ying MD 10/23/2018 12:16 P
== END ==
LOC: M SMT 09:01
PROVIDERS: ATTEND Thoracic Surgery (Cardiothoracic Vascular Surgery)
DX: J90 Pleural effusion, not elsewhere classified (principal)

== ENCOUNTER → 2018-11-18 | Outpatient (CLI) | payer OTHER ==
[~2018-11-18] MED LIST changes: +GASTROGRAFIN SOLUTION 30ML (Q9963) As Ordered ONE; +ISOVUE-370 76% 100ML VIAL (Q9967) As Ordered ONE
--- NOTE | 2018-11-18 14:22 | REP ---
CT ABDOMEN/PELVIS WITH IV AND ORAL CONTRAST: HISTORY: Restage ovarian carcinoma. COMPARISON STUDY: September 04, 2018 and July 21, 2018. CT CONTRAST DOSE: 100 mL of intravenous Isovue [address] FINDINGS: Preliminary digital realty specialist radiograph demonstrates a right-sided PleurX catheter. Bowel gas pattern is normal. Axial CT images show bilateral lower lobe mild platelike atelectasis. There are bilateral pleural effusions which are small, left larger than right. The right PleurX catheter is seen entering the pleural space posterolaterally. The left pleural effusion is essentially unchanged. The right pleural effusion is a little larger today compared to September 04, 2018. There is mild upper abdominal ascites. No focal hepatic or splenic lesion is seen. Accessory splenules are noted. No adrenal or pancreatic mass lesion is observed. The gallbladder is unremarkable. There is a small 1 cm cyst in the liver, unchanged. There is extensive omental caking. Enhancing tissue. This is quite similar measuring up to 4.6 cm in anteroposterior dimension, as before. This omental caking appears essentially unchanged. There is an extensive multicystic mass again noted occupying the entire pelvis and lower abdomen extending up to the level of the umbilicus. This process measures 15.2 cm in craniocaudal span and appears to be unchanged in overall volume from the most recent prior study. There are enhanced thickened and somewhat nodular septations within this process. No new pelvic mass is appreciated. No abdominal wall defect is seen. No bony destructive lesion is appreciated. IMPRESSION: Extensive omental caking, mild ascites, large multicystic pelvo-abdominal mass, all essentially unchanged from most recent prior study of September 04, 2018. Bilateral small pleural effusions are noted as above with a right-sided PleurX catheter. Electronically Signed by Feng Ying MD 11/18/2018 08:42 P
== END ==
LOC: M RAD 11:01
PROVIDERS: ATTEND Internal Medicine Hematology & Oncology
DX: C56.9 Malignant neoplasm of unspecified ovary (principal); K66.8 Other specified disorders of peritoneum; R18.0 Malignant ascites; J90 Pleural effusion, not elsewhere classified; Z96.89 Presence of other specified functional implants
CPT/HCPCS: 74177; Q9963; Q9967

== ENCOUNTER 2018-12-16 07:53 | Outpatient (CLI) | payer OTHER ==
[2018-12-16] VITALS (8 sets, daily range): BP systolic 99–127; BP diastolic 60–72
[~2018-12-16] VITALS: Ht 165.1 cm; Wt 59.5 kg
[~2018-12-16 07:53] MED LIST changes: +ACETAMINOPHEN TAB 650MG DOSE (2X325MG) PO SCH; -GASTROGRAFIN SOLUTION 30ML (Q9963) As Ordered ONE; -ISOVUE-370 76% 100ML VIAL (Q9967) As Ordered ONE; +RA B1TAB8 PO; +diphenhydrAMINE 25 MG CAP PO SCH
[2018-12-16] MEDS ORDERED: SODIUM CHLORIDE 0.9% INJ 10 ML SYR IV SCH (09:00)
== END 2018-12-16 13:25 | disposition home or self-care (01) ==
LOC: M INFU 07:53
PROVIDERS: ATTEND Nurse Practitioner Family
DX: D64.9 Anemia, unspecified (principal)
CPT/HCPCS: 36430; P9016

== ENCOUNTER → 2018-12-18 | Outpatient (CLI) | payer OTHER ==
[~2018-12-18] MED LIST changes: -ACETAMINOPHEN TAB 650MG DOSE (2X325MG) PO SCH; -diphenhydrAMINE 25 MG CAP PO SCH
--- NOTE | 2018-12-18 11:17 | REP ---
Clinical: Pleural effusion. Technique: PA and lateral. Comparison: 10/23/2018. Findings: Small pleural effusions (right greater than left) are appreciated. Associated passive atelectasis cannot be excluded. Mediastinum and cardiac silhouette are within normal limits and stable. Exnolh-M-Uqiw extends into the right atrium. Right-sided chest tube extends to the medial right upper lung zone. No pneumothorax. No focal consolidation. Impression: Small pleural effusions (right greater than left). Electronically Signed by Osito Don MD 12/18/2018 11:08 A
== END ==
LOC: M SMT 09:44
PROVIDERS: ATTEND Thoracic Surgery (Cardiothoracic Vascular Surgery)
DX: J90 Pleural effusion, not elsewhere classified (principal)

== ENCOUNTER → 2019-02-04 | Outpatient (CLI) | payer OTHER ==
[~2019-02-04] MED LIST changes: +GASTROGRAFIN SOLUTION 30ML (Q9963) As Ordered ONE; +ISOVUE-370 76% 100ML VIAL (Q9967) As Ordered ONE
--- NOTE | 2019-02-04 23:00 | REP ---
Clinical: Ovarian cancer for restaging. Technique: Axial contrast enhanced images from the lung bases to the pubic symphysis using oral (per protocol) and 100 ml Isovue 370 intravenous contrast material with precontrast and delayed images of the abdomen as well as coronal and sagittal re-formations. Comparison: 11/18/2018. Findings: Extensive curvilinear omental caking noted in the anterior upper abdomen below the level of the stomach which is unchanged as compared to prior examination. Mesenteric lymph nodes are identified and small scattered areas of soft tissue density cannot definitively be excluded as well. Small amount of ascites is appreciated. Liver demonstrates stable subcentimeter cyst or without further hepatic lesion identified. Spleen, pancreas, gallbladder, and bilateral adrenal glands are normal. Kidneys are unchanged with suggestions for extrarenal pelvis but no definite hydroureter. The enteric system demonstrates fecal stasis without obstruction. Large multicystic/multi septated mass essentially occupying the entire pelvis is unchanged. Uterus remain stable. The bladder is somewhat collapsed and compressed by the above-mentioned a large multicystic pelvic mass lesion. The abdominal aorta and vasculature appear normal. No obvious retroperitoneal adenopathy. No free air. Osseous structures are intact without focal abnormality. Lung bases demonstrate small pleural effusions and trace basilar atelectasis decreased from prior examination. Impression: 1. Omental caking and large multiseptated/multicystic pelvic mass remain unchanged. Small amount of ascites is also identified and similar to prior examination. 2. Fecal stasis. 3. Stable subcentimeter hepatic cyst. 4. Small bilateral pleural effusions and passive atelectasis improved from prior examination. Electronically Signed by Osito Don MD 02/04/2019 10:51 P
== END ==
LOC: M RAD 12:22
PROVIDERS: ATTEND Internal Medicine Hematology & Oncology
DX: C56.9 Malignant neoplasm of unspecified ovary (principal)
CPT/HCPCS: 74178; Q9963; Q9967

== ENCOUNTER → 2019-02-06 | Outpatient (CLI) | payer OTHER ==
[~2019-02-06] MED LIST changes: -GASTROGRAFIN SOLUTION 30ML (Q9963) As Ordered ONE; -ISOVUE-370 76% 100ML VIAL (Q9967) As Ordered ONE
--- NOTE | 2019-02-06 16:47 | REP ---
Chest x-ray: Two views: History: Pleural effusion. Comparison chest x-ray: December 18, 2018. Findings: There is a left sided transvenous Ziomoo-C-Yaei catheter in place with its tip in the expected location of the superior vena cava. A right-sided Pleurx catheter is noted in the pleural space posteriorly and medially. There is blunting of the right and left lateral pleural angles unchanged from prior study. The posterior pleural angles are fairly sharp. No acute infiltrate is seen. Mild enlargement of cardiac silhouette is seen. Impression: Slight pleural angle blunting bilaterally. Mildly enlarged cardiac silhouette. Right Pleurx and Mdnuuv-R-Vmoe catheter is noted. Otherwise no acute disease. Electronically Signed by Feng Ying MD 02/06/2019 08:22 P
== END ==
LOC: M SMT 11:14
PROVIDERS: ATTEND Thoracic Surgery (Cardiothoracic Vascular Surgery)
DX: J90 Pleural effusion, not elsewhere classified (principal); Z95.9 Presence of cardiac and vascular implant and graft, unspecified

== ENCOUNTER → 2019-02-14 | Outpatient (CLI) | payer OTHER ==
[2019-02-14 08:54] LABS: BASO # 0.1 10^3/uL (0.0-0.2); BASO % 0.6 % (0.0-1.0); EOS # 0.1 10^3/uL (0.0-0.50); EOS % 0.6 % (0.0-3.0); HEMATOCRIT 33.8 % (36.0-47.0); HEMOGLOBIN 10.5 g/dl (12.0-15.5); LYMPH # 1.6 10^3/uL (1.5-4.5); LYMPH % 17.8 % (24.0-44.0); MEAN CORPUSCULAR HGB CONC 31.1 g/dl (32.0-36.5); MONO # 0.8 10^3/uL (0.0-0.8); MONO % 9.1 % (0.0-5.0); NEUTROPHILS # 6.3 10^3/uL (1.8-7.7); NEUTROPHILS % 70.7 % (36.0-66.0); PLATELET COUNT, AUTOMATED 540 10^3/uL (150-450); RED BLOOD COUNT 3.28 10^6/uL (4.00-5.40); WHITE BLOOD COUNT 8.9 10^3/uL (4.0-10.0)
== END ==
LOC: M LAB 08:12
PROVIDERS: ATTEND Obstetrics & Gynecology
DX: R19.00 Intra-abdominal and pelvic swelling, mass and lump, unspecified site (principal)

== ENCOUNTER 2019-04-08 14:22 | Inpatient (IN) | payer OTHER ==
[~2019-04-08] VITALS: Ht 162.6 cm; Wt 53.7 kg
[~2019-04-08 14:22] MED LIST changes: -ACET-907 PO; -ENOX40IN3 SC; -OXYC-517 PO
[2019-04-08] MEDS ORDERED: SODIUM CHLORIDE 0.9% INJ 10 ML SYR IV PRN (15:00)
[2019-04-08] MEDS ORDERED: MORPHINE 4 MG/ML 1ML VIAL/SYRINGE (J2270) IV PRN (15:15)
[2019-04-08] MEDS ORDERED: ENOX40IN3 SC (15:16)
[2019-04-08] MEDS ORDERED: OXYC-517 PO (15:16)
[2019-04-08] MEDS ORDERED: ACET-907 PO (15:16)
[2019-04-08] MEDS ORDERED: KCL 20MEQ IN D5/NS 1000ML 1,000 ML IV SCH (15:17)
[2019-04-08 15:20] VITALS: BP 117/74
[2019-04-08] MEDS ORDERED: LEVALBUTEROL 1.25 MG/0.5 ML CONCENTRATE NEB NEB PRN (15:30)
[2019-04-08] MEDS ORDERED: BISACODYL 10 MG SUPP PR PRN (15:30)
[2019-04-08] MEDS ORDERED: ACETAMINOPHEN TAB 650MG DOSE (2X325MG) PO PRN (15:30)
[2019-04-08] MEDS ORDERED: ceFAZolin SOD 1 GM in D5W MINI-BAG PLUS 50 ML IV ONE (15:30)
[2019-04-08] MEDS ORDERED: ONDANSETRON 4MG/2ML VIAL (J2405) IV PRN (15:30)
[2019-04-08] MEDS ORDERED: PERCOCET 5MG/325MG TAB PO PRN ×2 (15:30)
[2019-04-08] MEDS ORDERED: NORCO, ANEXSIA 5/325MG TABLET (HYDROcodone/ACETAMINOPHEN) PO PRN (15:30)
[2019-04-08] MEDS ORDERED: FLUMAZENIL 0.5 MG/5 ML VIAL As Ordered ONE (15:38)
[2019-04-08] MEDS ORDERED: MIDAZOLAM INJ 2 MG/2 ML VIAL (J2250) As Ordered ONE ×2 (15:38→15:39)
[2019-04-08] MEDS ORDERED: LIDOCAINE 1% MDV 20ML VIAL As Ordered ONE (15:40)
[2019-04-08] MEDS: MOM 30ML SUSPENSION UDC PO SCH ×2 (17:20→20:23)
[2019-04-08] MEDS: PANTOPRAZOLE 40MG TAB (PROTONIX) PO SCH (17:20)
[2019-04-08] MEDS: KETOROLAC 30 MG/ML VIAL (J1885) IV SCH ×2 (17:23→20:31)
--- NOTE | 2019-04-08 17:26 | REP ---
CT chest without contrast: History: Left pleural effusion. History of ovarian carcinoma. Comparison chest CT study July 21, 2018. Comparison is made with today's chest x-ray. Findings: Preliminary digital inspector receiving radiograph, like today's chest x-ray, shows a large left pleural effusion and a small effusion blunting the right lateral pleural angles. There is an Fdxurt-Z-Tgtq catheter noted in place via the left side with its tip in the expected location of the superior vena cava. EKG electrodes are seen. Axial CT images show a Pleurx catheter in place in the right pleural space with a mild amount of right pleural effusion. On the left there is a large pleural effusion without obvious pleural mass lesion. No definite nodularity is seen. There is a small amount of pericardial fluid. There is some shift of mediastinum to the right. On coronal images of the left hemidiaphragm is somewhat depressed. There is compressive atelectasis in the left lower lobe. No adrenal lesion is seen on either side. There is some soft tissue nodularity in the pericolonic fat in the left upper quadrant similar to CT study from February 04, 2019. Bone window settings show no bony destructive lesion. Impression: Pleurx catheter in the right pleural space with a small residual right pleural effusion. Large left pleural effusion has developed depressing the left hemidiaphragm somewhat and associated with rightward mild mediastinal shift. There is some atelectasis in the left lower lobe. Small amount of pericardial fluid is seen. An Tgepdn-H-Jfzv catheter is noted. Electronically Signed by Feng Ying MD 04/09/2019 07:50 A
[2019-04-08 17:34] LABS: PH BODY FLUID 7.591 UNITS (NOT ESTABLISHED); SOURCE, BODY FLUID pH PLEURAL
[2019-04-08 17:44] LABS: APPEARANCE, BODY FLUID HAZY (CLEAR); PLEURAL FL COLOR YELLOW (COLORLESS); SOURCE, BODY FLUID PLEURAL
[2019-04-08 17:46] LABS: AMYLASE, BODY FLUID 35 U/L (NOT ESTABLISHED); CHOLESTEROL, BODY FLUID 95 MG/DL (NOT ESTABLISHED); LDH, BODY FLUID 143 U/L (NOT ESTABLISHED); SOURCE, BODY FLUID ALBUMIN PLEURAL; SOURCE, BODY FLUID AMYLASE PLEURAL; SOURCE, BODY FLUID CHOL PLEURAL; SOURCE, BODY FLUID GLUCOSE PLEURAL; SOURCE, BODY FLUID LDH PLEURAL; SOURCE, BODY FLUID TOT PROTEIN PLEURAL; SOURCE, BODY FLUID TRIG PLEURAL; TOTAL PROTEIN, BODY FLUID 4.8 G/DL (NOT ESTABLISHED); TRIGLYCERIDE, BODY FLUID 34 MG/DL (NOT ESTABLISHED)
--- NOTE | 2019-04-08 18:21 | HPE ---
DATE OF ADMISSION: 04/08/2019 ONCOLOGIST: Dr. Meg Bradshaw THORACIC SURGEON: Dr. Wolfgang Rich HISTORY: Paula Dorantes is a unfortunate 48-year-old with stage IV metastatic ovarian cancer. Been seen by Dr. Rich in the past who did a right-sided thoracentesis as well as paracentesis. Placed a Pleurx catheter June 2018. She was last seen by Dr. Bradshaw on 03/11/2019. She had noted the patient was recently postoperative from debulking surgery by Dr. Degroot at [facility]. Had neoadjuvant Taxol, carboplatin, and second-line topotecan therapy with no treatment effect. Had a Pleur-evac in her chest. Drained 600 mL. She was sent by Dr. Rich to the emergency room. Was found to have a large left pleural effusion, asymptomatic from this. CT of the chest was done, but it will not come up on the station that I am working from. Dr. Rich indicated that the patient was being admitted to the progressive care unit (PCU) for a catheter placement. Being admitted to the hospitalist service. PAST MEDICAL HISTORY: Benign except for the ovarian cancer. Had a history of arthritis, anxiety, panic attacks. FAMILY HISTORY: Mother, 77, diabetes and dementia. Father, 75. One brother with cancer, hypertension, diabetes. Sister with hypertension. MEDICATIONS: - vitamin C - vitamin D - Lovenox 40 mg subcutaneous daily - fish oil - omeprazole 20 mg daily - oxycodone 5 mg every 6 hours as needed for pain - Tylenol as needed ALLERGIES: None known. SOCIAL HISTORY: She is . Nonsmoker. REVIEW OF SYSTEMS: Unobtainable. PHYSICAL EXAMINATION: Deferred. The patient was being prepped for a catheter by Dr. Rich. IMPRESSION: Pleural effusion with severe dyspnea. PLAN: Dr. Rich is taking the patient from the ER to the progressive care unit (PCU) and is putting a catheter in as I dictate. Prognosis is poor, and treatment is essentially palliative. Will put a consult in for Dr. Bradshaw to see the patient while in hospital. Analgesics and deep vein thrombosis (DVT) prophylaxis have been ordered.
[2019-04-08 20:00] VITALS: BP 144/93
[2019-04-08] MEDS: LEVALBUTEROL 1.25 MG/0.5 ML CONCENTRATE NEB NEB SCH (20:00)
[2019-04-08] MEDS: DOCUSATE SODIUM 100 MG CAP PO SCH (20:22)
[2019-04-08] MEDS: HEPARIN SOD (PORCINE) 5000 UNITS/ML VIAL SC SCH (20:30)
[2019-04-08 23:59] VITALS: BP 136/72
[2019-04-09] MEDS: LEVALBUTEROL 1.25 MG/0.5 ML CONCENTRATE NEB NEB SCH ×4 (02:00→17:59)
[2019-04-09 03:59] VITALS: BP 96/60
[2019-04-09] MEDS: KETOROLAC 30 MG/ML VIAL (J1885) IV SCH ×3 (05:03→16:21)
[2019-04-09] MEDS ORDERED: FLUMAZENIL 0.5 MG/5 ML VIAL IV PRN (07:15)
[2019-04-09] MEDS ORDERED: LIDOCAINE 1% MDV 20ML VIAL SC ONE ×2 (07:15)
[2019-04-09] MEDS ORDERED: MIDAZOLAM INJ 2 MG/2 ML VIAL (J2250) IV ONE ×3 (07:15)
--- NOTE | 2019-04-09 07:26 | ECGEPIP ---
[facility] - ED Test Date: 2019-04-08 Pat Name: AMY PUTNAM Department: Room: - Gender: Female Healthcare Science Specialist: JMelina : 1970 Requested By: Alejandro Kamara Order Number: [id number] Reading MD: Yola Montenegro Measurements Intervals [place] Rate: 107 P: 0 [place]: 97 QRS: 35 QRSD: 89 T: -12 QT: 327 QTc: 438 Interpretive Statements SINUS TACHYCARDIA WITH SHORT [place] INTERVAL NONSPECIFIC ST & T-WAVE ABNORMALITY ABNORMAL RHYTHM ECG SIMILAR 07/14/18 Electronically Signed on 04-09-2019 7:26:26 EDT by Yola Montenegro
--- NOTE | 2019-04-09 07:33 | REP ---
REASON: Followup. COMPARISON: Earlier today at 12:43 pm. The right-sided thoracotomy tube is unchanged. The central venous catheter tip is unchanged remaining in the superior vena cava. There is silhouetting out of the left heart border from a large left pleural effusion. The size of the left pleural effusion has decreased compared to the prior exam. The right pleural effusion is unchanged. There is a pigtail catheter in the left lower hemithoracic region between the left 10th and 11th ribs laterally. IMPRESSION: Decreased left pleural effusion and other findings as described above. Electronically Signed by Logan Ho DO 04/09/2019 03:18 P
--- NOTE | 2019-04-09 07:48 | RO ---
DATE OF PROCEDURE: 04/08/2019 PREPROCEDURE DIAGNOSIS: Left pleural effusion with shortness of breath. POSTPROCEDURE DIAGNOSIS: Left pleural effusion with shortness of breath. PROCEDURE: Insertion of posterior chest tube catheter on the left side. SURGEON: Dr. Wolfgang Rich. ACID PUMP OPERATOR: ANESTHESIA: 1% lidocaine. DESCRIPTION OF PROCEDURE: The patient was prepped and draped in the usual sterile fashion and the approximate 8th intercostal space and rib were infiltrated with 1% lidocaine. Both skin, subcutaneous tissue, muscle, and pleura were infiltrated. Incision was made and a pigtail catheter was placed percutaneously. The stylet was removed and the pigtail catheter closed with a restricting suture. Michell fluid was eluded from the chest. Initially 600 mL was removed and this was sent for the requisite studies of chemistries, hematology, cytology and bacteriologies. She will be connected to a Pleur-evac at 20 cm of suction. I will re-evaluate the drainage in about 2 hours. If her lung is fully expanded to the chest wall, I will discharge her from the hospital tonight.
[2019-04-09 08:00] VITALS: BP 109/65
--- NOTE | 2019-04-09 08:06 | IPN ---
DATE: 04/08/2019 Ms. Dorantes underwent a pigtail catheter chest tube about 2 hours ago. The initial findings showed 600 mL. Since then, she has put out 1400 mL for a total of 2000 mL. She is breathing much better, however, her chest x-ray does not show her lung expanded. While I was hoping to send her home today, I think that it is prudent to do vigorous lung expansion therapy on her to get her lung to expand. I will therefore keep her at least overnight.
[2019-04-09 08:43] LABS: HEMATOCRIT 37.1 % (36.0-47.0); HEMOGLOBIN 11.2 g/dl (12.0-15.5); MEAN CORPUSCULAR HEMOGLOBIN 28.1 pg (27.0-33.0); MEAN CORPUSCULAR HGB CONC 30.2 g/dl (32.0-36.5); MEAN CORPUSCULAR VOLUME 93.2 fl (80.0-96.0); PLATELET COUNT, AUTOMATED 394 10^3/uL (150-450); RED BLOOD COUNT 3.98 10^6/uL (4.00-5.40); WHITE BLOOD COUNT 6.5 10^3/uL (4.0-10.0)
[2019-04-09] MEDS: DOCUSATE SODIUM 100 MG CAP PO SCH (09:00)
[2019-04-09 09:08] LABS: BLOOD UREA NITROGEN 14 MG/DL (7-18); CALCIUM LEVEL 9.8 MG/DL (8.5-10.1); CARBON DIOXIDE LEVEL 27 MEQ/L (21-32); CHLORIDE LEVEL 104 MEQ/L (98-107); CREATININE FOR GFR 0.63 MG/DL (0.55-1.30); GLOMERULAR FILTRATION RATE > 60.0 (>51); GLUCOSE, FASTING 96 MG/DL (70-100); POTASSIUM SERUM 4.2 MEQ/L (3.5-5.1); SODIUM LEVEL 141 MEQ/L (136-145)
--- NOTE | 2019-04-09 09:37 | REP ---
CHEST X-RAY: Two views. HISTORY: Pleural effusion. COMPARISON STUDY: April 08, 2019. FINDINGS: A pigtail drainage catheter is again visible in the region of the left lateral pleural angle. The previously large left pleural effusion is improved. Small to moderate amount of pleural fluid persists blunting the pleural angle. There is no evidence of pneumothorax. A PleurX catheter is noted on the right and there is some blunting of the right lateral pleural angle as well. Heart is not enlarged. IMPRESSION: Interval decrease in the size of the left effusion. Pigtail catheter placed the lateral pleural angle. Small pleural effusion noted on the right with a PleurX catheter. Electronically Signed by Feng Ying MD 04/09/2019 12:57 P
[2019-04-09] MEDS: PANTOPRAZOLE 40MG TAB (PROTONIX) PO SCH (09:44)
[2019-04-09] MEDS: MOM 30ML SUSPENSION UDC PO SCH (09:44)
[2019-04-09] MEDS: HEPARIN SOD (PORCINE) 5000 UNITS/ML VIAL SC SCH (09:46)
[2019-04-09 12:00] VITALS: BP 109/66
[2019-04-09] MEDS ORDERED: SLF 3 ML SYR IV PRN (12:00)
[2019-04-09 13:03] LABS: LDH LACTATE DEHYDROGENASE 129 U/L (84-246)
--- NOTE | 2019-04-09 13:31 | IPN ---
DATE: 04/09/2019 Mrs. Dorantes is feeling much better today and she certainly can breathe a lot better today. Since midnight however, she has put out 600 mL from the chest tube catheter. Her vital signs show a maximum temperature (t-max) of 97.7 with a heart rate that ranges between 81 and 99 in a sinus rhythm, respiratory rate of 18 to 22 without the use of accessory muscles, who is 95% saturated on room air and whose blood pressure is ranging between 136/72 to 96/60. Her intake and output over the past 24 hours has been recorded as 735 in and 2000 out for a negativity of 1200 mL. She put 2000 mL out of her chest catheter yesterday and 600 since midnight. She weighs 53.7 kg compared to 54.4 kg yesterday. PHYSICAL EXAMINATION: LUNGS: I can now hear breath sounds clearly on the left side. Her percussion note is dull at the very base. There is no longer E-to-A egophony. She does have some inspiratory crackles during mid to late inspiration. CARDIAC EXAM: Without murmurs, clicks, gallops or rubs. I cannot feel her point of maximum impulse (PMI). S1, S2 are normal. ABDOMEN: Soft, nontender. Bowel sounds positive. There is no hepatomegaly. No costovertebral angle tenderness. She has a colostomy bag in place that is filled with gas. EXTREMITIES: Show no pretibial edema. No calf tenderness. No differential swelling of the upper extremities. SKIN: Warm, dry and perfused without cyanosis or mottling. NECK: Supple. There is no jugular venous distention. No subcutaneous emphysema. Trachea is midline. MOUTH: Shows her mucous membranes to be pink and moist. Lips and commissures without lesions. There is no thrush. EYES: Show her pupils to be equal and reactive. Extraocular motion intact. Sclerae anicteric. NEUROLOGIC: Shows II through XII intact with gross motor and gross sensation intact. Gait is not tested; however, the nurses tell me that she walked to x-ray today without difficulty. PSYCHIATRIC: Shows her to be awake and alert, oriented times three with appropriate mood and affect and conversational. Her white count today is 6.5 with a hemoglobin and hematocrit of 11.2 and 37.1 and a platelet count of 394. Chemistries today show a BUN and creatinine of 14 and 0.63 with a glucose of 96 and a calcium of 9.8. She remains on Toradol. Pleural fluid shows pH of 7.5 with a glucose of 112 and an LDH of 143. There is no corresponding serum LDH. Her white count is 361, 83% of which are lymphocytes. Pathology is pending. Bacteriology shows no organisms with only a few white cells, consistent with cell count. Her chest x-ray is markedly improved today. She still has an element of consolidation and/or fluid in the left lower hemithorax. The pigtail catheter is in excellent position at the costophrenic angle. IMPRESSION: 1. Stage IV widely metastatic aggressive ovarian adenocarcinoma. 2. New left pleural effusion. 3. Status post bowel resection for bowel obstruction secondary to tumor, now with a colostomy. 4. Treatment failure on two different ovarian cancer regimens of chemotherapy. 5. Right pleural effusion, treated with a PleurX catheter, functioning. 6. Prior ascites, resolved with chemotherapy. PLAN AND DISCUSSION: She is disappointed, but I think that I need to keep her another 24 hours to see if I can drain anymore out of her. She only has a pigtail catheter. I have a sinking feeling that she is going to eventually PleurX catheter, which will be somewhat problematic in its placement because of the colostomy appliance. Nonetheless, I will follow her as an outpatient in the office. I will reevaluate her and her chest x-ray tomorrow.
--- NOTE | 2019-04-09 13:53 | IPNPDOC ---
Text Note Date of Service The patient was seen on 04/09/19. NOTE SUBJECTIVE: Patient was admitted yesterday after being sent over from Dr. Rich's office for shortness of breath. She was found to have a new left sided pleural effusion. Dr. Rich placed pigtail catheter's on 04/08 with the intention of, with adequate drainage, sending her home today. She reports no acute events overnight and since having 2 Liters drained from her lung is breathing much better. OBJECTIVE: PHYSICAL EXAM: Vitals: (see below) General: No acute distress, laying comfortably in bed. HEENT: Normocephalic, atraumatic. EOMI. No scleral icterus. Moist mucous membranes. No pharyngeal erythema or uvular deviation. Neck: No JVD, lymphadenopathy, or thyromegaly. Cardiac: RRR, Normal S1 and S2, No murmurs, gallops, rubs. Pulm: Clear to auscultation b/l. Symmetric thorax. No wheezing, crackles, rhonchi Abd: Bowel Sounds present. Abdomen is soft, non-tender, non-distended. No guarding, rebound tenderness, or rigidity. No hepatosplenomegaly. No masses or eccymosis. Ext: No edema or cyanosis Neuro: No focal neuro deficits LABORATORY DATA, MICROBIOLOGY: Please see below. IMAGING STUDIES: Interval decrease in the size of the left effusion. Pigtail catheter placed the lateral pleural angle. Small pleural effusion noted on the right with a PleurX catheter. ASSESSMENT AND PLAN: #. new left sided pleural effusion secondary to metastatic ovarian adenocarcinoma - Management of the pigtail catheter will be per Dr. Rich, I spoke with him this morning and he feels she would benefit from at least one more night in the hospital. Will contact him tomorrow morning to see if she is appropriate for discharge. - Pain, nausea medications are on board. #. Chronic R-pleurX catheter -In place, no signs of worsening effusion in R-lung. functioning well. #. S/p bowel resection -Colostomy in place in L-side of abdomen. DVT prophylaxis: SQ heparin DISPOSITION: Pending clinical improvement VS,Fishbone, I+O VS, Fishbone, I+O Laboratory Tests 04/09/19 08:15 Red Blood Count 3.98 L, Mean Corpuscular Volume 93.2, Mean Corpuscular Hemoglobin 28.1, Mean Corpuscular Hemoglobin Concent 30.2 L, Red Cell Distribution Width 14.6 H, Calcium Level 9.8 Vital Signs Date Time Temp Pulse Resp B/P (MAP) Pulse Ox O2 Delivery O2 Flow Rate FiO2 04/09/19 12:00 97.1 89 20 109/66 (80) 96 04/08/19 14:23 Room Air I&O- Last 24 Hours up to 6 AM 04/09/19 06:00 Intake Total 735 ml Output Total 2300 ml Balance -1565 ml GME ATTESTATION GME ATTESTATION My faculty preceptor for this patient encounter was physically present during the encounter and was fully available. All aspects of the patient interview, examination, medical decision making process, and medical care plan development were reviewed and approved by the faculty preceptor. The faculty preceptor is aware and concurs with the plan as stated in the body of this note and will attest to such by his/her cosignature. ATTENDING NOTE I, Reyes King, have independently examined this patient and performed my own physical exam, as well as reviewed the documentation and edited where necessary. I have discussed in detail with the resident / student the findings and plan of treatment as documented by the resident / student and edited their note. I agree with their findings and treatment plan and have edited their documentation. I will continue to follow the patient during this hospital stay. JOE BERGER DO Apr 09, 2019 13:53 REYES KING MD Apr 09, 2019 16:01
[2019-04-09] MEDS ORDERED: SLF 3 ML SYR IV SCH (14:00)
[2019-04-09 16:00] VITALS: BP 104/63
--- NOTE | 2019-04-09 19:59 | DSES ---
DATE OF ADMISSION: 04/09/2019 DATE OF DISCHARGE: 04/09/2019 DISCHARGE DIAGNOSES: 1. Stage IV metastatic ovarian carcinoma. 2. New left pleural effusion, final pathology pending. 3. Status post bowel resection in the recent past for bowel obstruction secondary to tumor with colostomy. 4. Treatment failure on two different ovarian cancer regimens of chemotherapy. 5. Right pleural effusion, treated with a PleurX catheter, functioning. 6. Prior ascites, resolved with chemotherapy. HOSPITAL COURSE: The patient is a 48-year-old white female who was first noticed to have ascites at the beginning of 2018. She was found to have metastatic ovarian carcinoma. Her ascites resulted in right pleural effusion, which was eventually drained with a PleurX catheter. In combination with chemotherapy, her ascites resolved. She underwent gynecological surgery at [facility] for an unknown procedure that I do not have access to. She then underwent a bowel resection for large bowel obstruction secondary to tumor. Approximately 3 or 4 days prior to this admission, she started to become short of breath such that she could hardly move around her house and even walk to the bathroom. She was found to have a very large left pleural effusion. The initial plan was to place a PleurX catheter with the assumption that this pleural effusion was going to be malignant. However, the placement of the colostomy made placement of the PleurX catheter problematic. After discussion with the patient, we decided that we would drain it with a pigtail catheter. She is to see oncology next week for another regimen of chemotherapy. It is the hope that the effusion will not return, having now initially been drained. The initial chest x-ray after the drainage still showed the lung very compressed, which had previously been noted on the CT scan. The next morning her lung was more reexpanded with incentive spirometry and PET therapy. She had drained 600 mL from midnight to 7:00 a.m. and, therefore, it was decided to keep her in the hospital another 24 hours. However, on evening rounds, she had only drained about 50 mL, and there was no air leak. Therefore, the catheter was removed, and the patient is being discharged home today. She is being discharged on her home medications, which include: - Tylenol 325 mg every 4 hours as needed - vitamin C 500 mg daily - vitamin B complex with vitamin C one tablet daily - calcium carbonate 600 mg daily - vitamin D3 2000 units daily - enoxaparin 40 mg subcu daily - [place] fish oil one daily - omeprazole 20 mg daily as needed reflux symptomatology - oxycodone 5 mg every 6 hours as needed for pain She will return to see me in 1 week with a chest x-ray in the office. She has been instructed that should she become more short of breath, she should call the office or come to the emergency room. Her discharge hemoglobin and hematocrit were 11.2 and 37.1 respectively with a white count of 6.5 and a BUN and creatinine of 14 and 0.63 with normal electrolytes. Her pleural fluid chemistries showed the effusion to be lymphocytic and exudative but normoglycemic, all pointing to an exudative lymphocytic effusion, which is probably going to sock turner to be malignant. Final pathology is pending.
== END 2019-04-09 18:42 | disposition home or self-care (01) | DRG 530 ==
LOC: M ED 14:22 → M ED INP 14:23 → M PCU 15:30 → OBSVTOIN 04-09 15:20
PROVIDERS: ADMIT Family Medicine; ATTEND Thoracic Surgery (Cardiothoracic Vascular Surgery)
PROC: 0W9B3ZZ Drainage of Left Pleural Cavity, Percutaneous Approach (ICD-10-PCS; principal; 2019-04-08)
DX: C56.9 Malignant neoplasm of unspecified ovary (principal); J91.0 Malignant pleural effusion; Z95.9 Presence of cardiac and vascular implant and graft, unspecified; Z93.3 Colostomy status

== ENCOUNTER → 2019-04-08 | Outpatient (CLI) | payer OTHER ==
[~2019-04-08] MED LIST changes: +ACET-907 PO; +ENOX40IN3 SC; +OXYC-517 PO
--- NOTE | 2019-04-08 14:20 | REP ---
CHEST, TWO VIEWS: Two views of the chest are performed. COMPARISON: 02/06/2019 There is a very large left effusion, which has significantly increased since the prior exam. There is a mild to moderate right effusion, which has mildly increased since the prior exam. Pleural drainage catheter is again seen on the right, not significantly changed in position. A left central venous catheter is again seen with the tip at the atriocaval junction. IMPRESSION: Significant increase in left pleural effusion, which is now quite large. Mild increase in the small to moderate sized right pleural effusion. There is adjacent mild bibasilar atelectasis/infiltrate. Electronically Signed by Jake Saucedo MD 04/09/2019 09:34 A
== END ==
LOC: M LRY 12:30
PROVIDERS: ATTEND Thoracic Surgery (Cardiothoracic Vascular Surgery)
DX: J90 Pleural effusion, not elsewhere classified (principal); C56.9 Malignant neoplasm of unspecified ovary; J98.11 Atelectasis

== ENCOUNTER → 2019-04-16 | Outpatient (CLI) | payer OTHER ==
[~2019-04-16] MED LIST changes: +ACET-907 PO; +ENOX40IN3 SC; +OXYC-517 PO
--- NOTE | 2019-04-16 09:49 | REP ---
PA and lateral chest: Comparison is 04/09/2019. There are large bilateral pleural effusions. The right pleural effusion is unchanged. The left pleural effusion has increased in size. The right thoracotomy tube is unchanged. There is a left IJ central venous catheter with the tip in the right atrium in satisfactory location as an interval change. There is no pneumothorax. The remainder the lung naqvi are clear. Cardiac size is normal. Gilda, mediastinum, skeletal structures are unremarkable. Impression: The left pleural effusion has increased in size. The right pleural effusion is unchanged. The right thoracotomy tube is unchanged. There has been interval placement of a left IJ central venous catheter. Electronically Signed by Jake Millard MD 04/16/2019 09:41 A
== END ==
LOC: M SMT 09:18
PROVIDERS: ATTEND Thoracic Surgery (Cardiothoracic Vascular Surgery)
DX: J90 Pleural effusion, not elsewhere classified (principal); Z97.8 Presence of other specified devices

== ENCOUNTER → 2019-05-21 | Outpatient (CLI) | payer OTHER ==
[~2019-05-21] MED LIST changes: +OMEP-358 PO; -OMEP20TA PO
--- NOTE | 2019-05-21 12:14 | REP ---
Two-view chest: 05/21/2019. Indication: Preoperative assessment. Comparison: 04/16/2019. Findings: Right-sided chest tube is present without pneumothorax. Left-sided Port-A-Cath is noted with the tip in the right atrium. Bilateral pleural effusions are redemonstrated and slightly less conspicuous. No new air space consolidations are present. The cardiac silhouette is unremarkable. Impression: Diminished pleural effusions. Otherwise stable examination. Electronically Signed by Ulises Winter DO 05/21/2019 12:06 P
== END ==
LOC: M SMT 10:34
PROVIDERS: ATTEND Thoracic Surgery (Cardiothoracic Vascular Surgery)
DX: Z01.818 Encounter for other preprocedural examination (principal); J90 Pleural effusion, not elsewhere classified; Z96.89 Presence of other specified functional implants

== ENCOUNTER → 2019-05-21 | Outpatient (CLI) | payer OTHER ==
[2019-05-21 17:16] LABS: PLATELET COUNT, AUTOMATED 135 10^3/uL (150-450)
[2019-05-21 17:24] LABS: INR 1.04; PROTHROMBIN TIME 13.3 SECONDS (11.8-14.0)
[2019-05-21 17:25] LABS: PARTIAL THROMBOPLASTIN TIME 28.8 SECONDS (25.0-38.4)
== END ==
LOC: M WUC 13:28
PROVIDERS: ATTEND Thoracic Surgery (Cardiothoracic Vascular Surgery)
DX: C80.1 Malignant (primary) neoplasm, unspecified (principal); J91.0 Malignant pleural effusion

== ENCOUNTER → 2019-05-22 | Outpatient (CLI) | payer OTHER ==
[2019-05-22 14:54] LABS: SOURCE, BODY FLUID pH PLEURAL
[2019-05-22 15:04] LABS: SOURCE, BODY FLUID PLEURAL
[2019-05-22 15:05] LABS: APPEARANCE, BODY FLUID HAZY (CLEAR); PLEURAL FL COLOR YELLOW (COLORLESS)
[2019-05-22 15:20] LABS: AMYLASE, BODY FLUID 28 U/L (NOT ESTABLISHED); LDH, BODY FLUID 139 U/L (NOT ESTABLISHED); SOURCE, BODY FLUID AMYLASE PLEURAL; SOURCE, BODY FLUID GLUCOSE PLEURAL; SOURCE, BODY FLUID LDH PLEURAL; SOURCE, BODY FLUID TOT PROTEIN PLEURAL; TOTAL PROTEIN, BODY FLUID 4.9 G/DL (NOT ESTABLISHED)
[2019-05-22 15:45] VITALS: BP 126/78
--- NOTE | 2019-05-22 16:29 | REP ---
CHEST, TWO VIEWS: Two views of the chest are performed and compared to prior study of 05/21/2019. There is decreased amount of left pleural fluid with no pneumothorax, status post left thoracentesis. Right pleural fluid is unchanged. There is a right chest tube again noted unchanged. Left central venous catheter is unchanged. IMPRESSION: No pneumothorax, status post left thoracentesis, with a decreased amount of left pleural fluid. No other changes. Electronically Signed by Jake Saucedo MD 05/23/2019 11:19 A
--- NOTE | 2019-05-23 17:50 | REP ---
Ultrasound-guided thoracentesis The procedure was performed by CHIARA Loza, under the direct supervision of Dr. Saucedo. The risks and benefits of the procedure were explained to the patient and informed consent was obtained both verbally and written. Directly prior to the start of the procedure, a formal timeout was completed in the exam room. Pleural fluid in the left lung zone was localized using ultrasound guidance. The skin was prepped and draped in a sterile fashion. 3 ml of 1% lidocaine was used as a local anesthetic. Using ultrasound guidance, an 8-Bermudian multi side-hole catheter was inserted and advanced into the fluid. 500 ml of yellow colored fluid was withdrawn and sent to the lab for analysis. The patient tolerated the procedure well and there were no immediate complications. After the appropriate amount of monitored convalescence, the patient was discharged from the department. Reviewed by CHIARA Lockhart 05/22/2019 03:57 P Electronically Signed by Jake Saucedo MD 05/23/2019 05:41 P
== END ==
LOC: M IRPRO 12:48
PROVIDERS: ATTEND Thoracic Surgery (Cardiothoracic Vascular Surgery)
DX: C56.9 Malignant neoplasm of unspecified ovary (principal); J91.0 Malignant pleural effusion

== ENCOUNTER 2019-05-27 08:31 | Day surgery (SDC) | payer OTHER ==
[~2019-05-27] VITALS: Ht 157.5 cm; Wt 53.4 kg
[~2019-05-27 08:31] MED LIST changes: +MUPIROCIN 2% OINT 22 GM TUBE TOP ONE; +ceFAZolin SOD 2 GM in IV 1 EA IV ONE
[2019-05-27] MEDS ORDERED: BUPIVACAINE LIPOSOME/PF 1.3% 20ML VIAL (13.3MG/ML)(EXPAREL)(C9290 PER1MG) As Ordered ONE (10:00)
[2019-05-27] MEDS ORDERED: MIDAZOLAM INJ 2 MG/2 ML VIAL (J2250) As Ordered ONE (10:27)
--- NOTE | 2019-05-27 11:06 | RO ---
DATE OF PROCEDURE: 05/27/2019 PREPROCEDURE DIAGNOSIS: Retained PleurX catheter. POSTPROCEDURE DIAGNOSIS: Retained PleurX catheter. PROCEDURE: Removal of PleurX catheter. SURGEON: Wolfgang Rich MD PAINTING MANAGER: ANESTHESIA: DESCRIPTION OF PROCEDURE: Under satisfactory moderate sedation achieved with 3 mg of Versed, subcutaneous tissue and skin was infiltrated with Exparel. Incision was made over the course of catheter and the sewing collar was found. Sewing collar was stripped away and the catheter was pulled out in toto. Incision was closed with running #3-0 Vicryl suture for the subcutaneous tissue and running #4-0 Monocryl subcuticular suture for the skin. The patient tolerated the procedure well, and a chest x-ray is pending.
--- NOTE | 2019-05-27 11:14 | REP ---
Clinical: Chest tube removal. Comparison: 05/22/2019. Findings: Previous right apical chest tube has been removed no obvious pneumothorax. Small to moderate bilateral pleural effusions with bibasilar pleuroparenchymal changes remain stable. Visualized portions of the mediastinum and cardiac silhouette are within normal limits. Xjpeey-O-Hqrx again identified with tip in the right atrium. Skeletal structures intact. Impression: 1. Right chest tube subsequently removed without obvious pneumothorax. 2. Small to moderate bilateral pleural effusions and bibasilar pleuroparenchymal changes remain stable. Electronically Signed by Osito Don MD 05/27/2019 11:05 A
[2019-05-27 11:28] VITALS: BP 124/76
== END 2019-05-27 11:36 | disposition home or self-care (01) ==
LOC: M OPP 08:31
PROVIDERS: ATTEND Thoracic Surgery (Cardiothoracic Vascular Surgery)
DX: R93.89 Abnormal findings on diagnostic imaging of other specified body structures (principal); J91.0 Malignant pleural effusion; Z79.891 Long term (current) use of opiate analgesic; Z79.899 Other long term (current) drug therapy
CPT/HCPCS: 32552; 36415; 71045; 86850; 86900; 86901; C9290; J2250

== ENCOUNTER → 2019-07-03 | Outpatient (CLI) | payer OTHER ==
[~2019-07-03] MED LIST changes: -MUPIROCIN 2% OINT 22 GM TUBE TOP ONE; -ceFAZolin SOD 2 GM in IV 1 EA IV ONE
[2019-07-03 16:42] LABS: BASO % 0.6 % (0.0-1.0); EOS % 0.6 % (0.0-3.0); HEMATOCRIT 34.6 % (36.0-47.0); HEMOGLOBIN 10.2 g/dl (12.0-15.5); LYMPH # 1.5 10^3/uL (1.5-5.0); LYMPH % 21.4 % (24.0-44.0); MEAN CORPUSCULAR HEMOGLOBIN 27.6 pg (27.0-33.0); MEAN CORPUSCULAR HGB CONC 29.5 g/dl (32.0-36.5); MEAN CORPUSCULAR VOLUME 93.5 fl (80.0-96.0); MONO # 0.7 10^3/uL (0.0-0.8); NEUTROPHILS # 4.7 10^3/uL (1.5-8.5); NEUTROPHILS % 66.8 % (36.0-66.0); PLATELET COUNT, AUTOMATED 335 10^3/uL (150-450)
[2019-07-03 16:58] LABS: ALBUMIN 3.8 GM/DL (3.2-5.2); ALT/SGPT 17 U/L (12-78); BILIRUBIN,TOTAL 0.4 MG/DL (0.2-1.0); BLOOD UREA NITROGEN 11 MG/DL (7-18); CALCIUM LEVEL 9.4 MG/DL (8.5-10.1); CARBON DIOXIDE LEVEL 31 MEQ/L (21-32); CHLORIDE LEVEL 103 MEQ/L (98-107); CREATININE FOR GFR 0.68 MG/DL (0.55-1.30); GLOMERULAR FILTRATION RATE > 60.0 (>51); GLUCOSE, FASTING 88 MG/DL (70-100); POTASSIUM SERUM 4.1 MEQ/L (3.5-5.1); SODIUM LEVEL 139 MEQ/L (136-145); TOTAL PROTEIN 7.5 GM/DL (6.4-8.2)
[2019-07-03 17:21] LABS: CA 125 152.5 U/ML (<30.2)
== END ==
LOC: M WUC 12:01
PROVIDERS: ATTEND Obstetrics & Gynecology Gynecologic Oncology
DX: C56.1 Malignant neoplasm of right ovary (principal)

== ENCOUNTER → 2019-07-07 | Outpatient (CLI) | payer OTHER ==
--- NOTE | 2019-07-07 16:56 | REPPI ---
Chest x-ray: Two views. History: Malignant pleural effusion. Comparison chest x-ray: May 22, 2019. Findings: A left subclavian Haxfzo-A-Vgck catheter remains in place unchanged. There is blunting of the pleural angles bilaterally consistent with small bilateral pleural effusions. This is a little more prominent on the left than the right but unchanged from the May 22, 2019 study. Previous study showed a Pleurx catheter in place on the right. This is no longer apparent. Cardiomediastinal silhouette is unchanged. Impression: Small bilateral pleural effusions essentially unchanged. Ukkyuu-D-Zqoc catheter. Otherwise no acute disease. Electronically Signed by Feng Ying MD 07/07/2019 05:22 P
== END ==
LOC: M PLAIMG 14:15
PROVIDERS: ATTEND Thoracic Surgery (Cardiothoracic Vascular Surgery)
DX: C56.9 Malignant neoplasm of unspecified ovary (principal); J91.0 Malignant pleural effusion; Z95.9 Presence of cardiac and vascular implant and graft, unspecified

== ENCOUNTER → 2019-07-13 | Outpatient (CLI) | payer OTHER ==
--- NOTE | 2019-07-13 13:57 | REPPI ---
Two-view chest: 07/13/2019. Indication: Dyspnea. Comparison: 07/07/2019. Findings: Left-sided Port-A-Cath is present unchanged in position. Left greater than right pleural effusions are redemonstrated. Stable. The cardiomediastinal silhouette is unremarkable. No focal airspace consolidation or pneumothorax are detected. Impression: Sable bilateral pleural effusions. Electronically Signed by Ulises Winter DO 07/13/2019 01:48 P
== END ==
LOC: M PLAIMG 13:17
PROVIDERS: ATTEND Thoracic Surgery (Cardiothoracic Vascular Surgery)
DX: R06.02 Shortness of breath (principal); J91.0 Malignant pleural effusion; C56.9 Malignant neoplasm of unspecified ovary

== ENCOUNTER → 2019-08-21 | Outpatient (CLI) | payer OTHER ==
[~2019-08-21] MED LIST changes: +D32000TA PO; -LORA0.5T11 PO; +LORA0.5T5 PO
--- NOTE | 2019-08-21 14:34 | REP ---
Chest x-ray: Two views. History: Shortness of breath, malignant pleural effusion. Comparison chest x-ray May 27, 2019. Findings: There is a left-sided transvenous Hssupo-R-Bdbh catheter. There are small bilateral pleural effusions. These are essentially unchanged. There is a mildly prominent heart which is also unchanged. Pulmonary vasculature is not increased. No infiltrate is seen in the lung naqvi. Impression: Small bilateral pleural effusions mildly prominent heart unchanged from the prior most recent prior study Electronically Signed by Feng Ying MD 08/21/2019 02:25 P
== END ==
LOC: M LRY 11:02
PROVIDERS: ATTEND Thoracic Surgery (Cardiothoracic Vascular Surgery)
DX: R06.02 Shortness of breath (principal); J91.0 Malignant pleural effusion; C56.9 Malignant neoplasm of unspecified ovary

== ENCOUNTER 2019-08-22 17:01 | Inpatient (IN) | payer BC, OTHER ==
[~2019-08-22] VITALS: Ht 160 cm; Wt 51.9 kg
[~2019-08-22 17:01] MED LIST changes: -D32000TA PO
[2019-08-22] MEDS ORDERED: NS 1,000 ML IV ONE (17:15)
[2019-08-22 17:44] LABS: BASO % 0.5 % (0.0-1.0); EOS % 0.3 % (0.0-3.0); HEMATOCRIT 34.4 % (36.0-47.0); HEMOGLOBIN 10.5 g/dl (12.0-15.5); LYMPH # 0.7 10^3/uL (1.5-5.0); MEAN CORPUSCULAR HEMOGLOBIN 27.6 pg (27.0-33.0); MEAN CORPUSCULAR HGB CONC 30.5 g/dl (32.0-36.5); MEAN CORPUSCULAR VOLUME 90.5 fl (80.0-96.0); MONO # 0.1 10^3/uL (0.0-0.8); MONO % 2.2 % (0.0-5.0); NEUTROPHILS # 5.4 10^3/uL (1.5-8.5); NEUTROPHILS % 85.5 % (36.0-66.0); PLATELET COUNT, AUTOMATED 291 10^3/uL (150-450); WHITE BLOOD COUNT 6.3 10^3/uL (4.0-10.0)
[2019-08-22 18:09] LABS: ALBUMIN 3.4 GM/DL (3.2-5.2); ALT/SGPT 26 U/L (12-78); BILIRUBIN,DIRECT 0.2 MG/DL (0.0-0.2); BILIRUBIN,TOTAL 0.5 MG/DL (0.2-1.0); CK-MB VALUE MASS < 1.0 NG/ML (<3.6); CPK CREATINE PHOSPHOKINASE 50 U/L (26-192); LIPASE 105 U/L (73-393); TOTAL PROTEIN 7.1 GM/DL (6.4-8.2); TROPONIN I < 0.02 NG/ML (< 0.10)
[2019-08-22] MEDS ORDERED: ISOVUE-370 76% 100ML VIAL (Q9967) As Ordered ONE (20:10)
--- NOTE | 2019-08-22 21:11 | REPVR ---
PROCEDURE INFORMATION: Exam: CT Angiography Chest With Contrast Exam date and time: 08/22/2019 8:46 PM Age: 49 years old Clinical indication: Shortness of breath; Additional info: SOB, elev d-dimer, eval for pe TECHNIQUE: Imaging protocol: Computed tomographic angiography of the chest with intravenous contrast. 3D rendering: MIP and/or 3D reconstructed images were created by the technologist. Radiation optimization: All CT scans at this facility use at least one of these dose optimization techniques: automated exposure control; mA and/or kV adjustment per patient size (includes targeted exams where dose is matched to clinical indication); or iterative reconstruction. Contrast material: ISOVUE 370; Contrast volume: 100 ml; Contrast route: IV; COMPARISON: CT ANGIO CHEST 07/21/2018 2:49 PM FINDINGS: Pulmonary arteries: No focal pulmonary artery filling defect to suggest acute pulmonary embolus. Aorta: No thoracic aortic aneurysm or dissection. Lungs: Pulmonary vascular/interstitial pattern does not suggest active pulmonary edema. Atelectasis is present at the lung bases. No central endobronchial lesion. Pleural space: Bilateral pleural effusions are present small in size and layering dependently. No pneumothorax. Heart: Prominent size heart with small volume of pericardial fluid. No tamponade. Liver: Nodular contours of the anterior liver could suggest cirrhosis. Intraperitoneal space: Intra-abdominal free fluid, moderate volume. Lymph nodes: Small nonspecific mediastinal and right hilar lymph nodes are present. Bones/joints: Bony structures show no acute fracture or destructive process. Multiple sclerotic osseous foci in the left scapula, left proximal humerus, spine and manubrium, new since the prior CT. IMPRESSION: 1. No evidence of acute pulmonary embolus. 2. Bilateral pleural effusions and atelectasis with no underlying active pulmonary edema or pneumonia. 3. Incompletely imaged intra-abdominal free fluid. 4. Multiple new axial and appendicular skeleton sclerotic lesions which are concerning for metastatic disease Electronically signed by: Evan Tavarez On 08/22/2019 21:11:23 PM
--- NOTE | 2019-08-22 21:19 | REPVR ---
PROCEDURE INFORMATION: Exam: CT Abdomen And Pelvis With Contrast Exam date and time: 08/22/2019 8:46 PM Age: 49 years old Clinical indication: Abdominal pain; Generalized; Additional info: Abd pain, bloating, HX ovarian CA TECHNIQUE: Imaging protocol: Computed tomography of the abdomen and pelvis with intravenous contrast. Radiation optimization: All CT scans at this facility use at least one of these dose optimization techniques: automated exposure control; mA and/or kV adjustment per patient size (includes targeted exams where dose is matched to clinical indication); or iterative reconstruction. Contrast material: ISOVUE 370; Contrast volume: 100 ml; Contrast route: IV COMPARISON: CT ABD PELVIS WITH CONTRAST 11/18/2018 12:21 PM FINDINGS: ABDOMEN: Liver demonstrates somewhat nodular contours and the liver capsule is indented by abdominal fluid, suggesting a mucinous component to the fluid. No focal lesion. Spleen, pancreas, adrenals and kidneys are unremarkable. Gallbladder demonstrates wall thickening but no stone. Left paramedian bowel ostomy is present without obstructive change. No small bowel obstruction and no pneumoperitoneum. Portal and splenic veins enhance normally and the aorta is normal in caliber. Small nonspecific mesenteric lymph nodes. No retroperitoneal or upper abdominal lymphadenopathy. Gastric wall appears circumferentially edematous, new since the prior CT PELVIS: Large volume abdominal pelvic free fluid and there appear to be soft tissue implants within the pelvis around the vaginal cuff and posterior aspect of the bladder. Appendix is not visualized. Multiple ill-defined sclerotic lesions within the spine and pelvis are strongly concerning for metastatic disease and were not present previously IMPRESSION: Progressive metastatic disease with new skeletal metastases, and probable peritoneal or omental implants in a patient who has undergone a debulking procedure for ovarian cancer and ostomy. Large volume likely mucinous ascites. No evidence of bowel obstruction. Diffusely edematous appearance of the stomach, nonspecific, without evidence of obstruction Electronically signed by: Evan Tavarez On 08/22/2019 21:19:19 PM
[2019-08-22] MEDS ORDERED: ONDANSETRON 4MG/2ML VIAL (J2405) As Ordered ONE (22:06)
[2019-08-22] MEDS ORDERED: FAMOTIDINE INJ 20MG/2ML VIAL (S0028) IVP ONE (22:15)
[2019-08-22] MEDS ORDERED: ONDANSETRON 4MG/2ML VIAL (J2405) IV ONE (22:15)
[2019-08-22] MEDS ORDERED: D32000TA PO (22:32)
[2019-08-23 01:31] VITALS: BP 127/80
[2019-08-23] MEDS ORDERED: ONDANSETRON 4 MG TAB (S0181) PO ONE (02:00)
[2019-08-23 06:00] VITALS: BP 124/80
--- NOTE | 2019-08-23 06:26 | ECGEPIP ---
[facility] - ED Test Date: 2019-08-22 Pat Name: AMY PUTNAM Department: Room: - Gender: Female Program Director Substance Abuse: : 1970 Requested By: LOY AMOS Order Number: [id number] Reading MD: Cindy Mahmood Measurements Intervals [place] Rate: 99 P: 17 ND: 100 QRS: 44 QRSD: 94 T: 27 QT: 328 QTc: 422 Interpretive Statements SINUS RHYTHM WITH SHORT ND INTERVAL NONSPECIFIC ST T WAVE CHANGES CW 04/08/[address] T WAVE CHANGES Electronically Signed on 08-23-2019 6:26:33 EST by Cindy Mahmood
[2019-08-23 06:27] LABS: HEMATOCRIT 32.2 % (36.0-47.0); HEMOGLOBIN 9.5 g/dl (12.0-15.5); MEAN CORPUSCULAR HGB CONC 29.5 g/dl (32.0-36.5); MEAN CORPUSCULAR VOLUME 91.5 fl (80.0-96.0); PLATELET COUNT, AUTOMATED 275 10^3/uL (150-450); RED BLOOD COUNT 3.52 10^6/uL (4.00-5.40); WHITE BLOOD COUNT 6.8 10^3/uL (4.0-10.0)
--- NOTE | 2019-08-23 06:48 | HPEPDOC ---
General Date of Admission Aug 22, 2019 at 22:53 Date of Service: Aug 22, 2019 Attending Physician: TARUN DOMÍNGUEZ MD Chief Complaint The patient is a 49-year-old female admitted with a reason for visit of Ascites;Carcinoma Of Ovary Stage Iv;Dyspnea. Source: Patient, Family Exam Limitations: No limitations Timing/Duration: Day(s) Severity: Moderate Associated Symptoms: Loss of appetite, Shortness of breath, Other (abdominal distention) History of Present Illness 49 yo white woman with metastatic ovarian carcinoma previously c/b malignant recurrent ascites and right pleural effusion, which was drained with a PleurX catheter. She underwent gynecological debulking at [facility], and subsequently underwent a bowel resection for large bowel obstruction secondary to tumor and has been on chemotherapy. She reports that her ascites and pleural effusion had resolved for a few months and her pleurX has been out for a while and she has not required paracentesis in a while but noticed recently that she has early satiety and has shortness of breath with increase abdominal girth thus her presentation to the ED. In the ED, she was hemodynamically stable and afebrile with a noted distended abdomen. She was nauseous and was given zofran x 2 doses and given 1L NS. Workup was notable for CTA chest with a PE after a D-dimer of >4000 likely 2/2 malignancy, but did bilateral small pleural effusions, new axial and appendicular skeletal sclerotic lesions c/f bony mets, while CT A/P showed a large volume mucinous appearing ascites, peritoneal and omental implants also with spine and pelvic sclerotic lesions that are also new. She otherwise had a WBC 6.3, baseline anemia to 10.5, Cr 0.5 with normal LFTs, lipase, lactate and bland UA. She is now being admitted with plan for IR consult, likely [facility] since we have no IR coverage currently. Home Medications Scheduled Ascorbic Acid (Vitamin C) 500 Mg Cap, 500 MG PO DAILY, (Reported) B-Complex with Vitamin C (Vitamin B-Complex & C) 1 Each Tablet.er, 1 TAB PO DAILY, (Reported) Calcium Carbonate (Calcium Carbonate) 600 Mg Tab, 600 MG PO DAILY, (Reported) Cholecalciferol (Vitamin D3) (Vitamin D3) 2,000 Unit Tablet, 2,000 UNIT PO DAILY, (Reported) Winfred-3S/Dha/Epa/Fish Oil (Fish Oil Dr 1,000 mg Softgel) 1 Cap Cap, 1 CAP PO DAILY, (Reported) Omeprazole (Omeprazole) 20 Mg Tab, 20 MG PO DAILY, (Reported) Scheduled PRN Acetaminophen (Tylenol) 325 Mg Tablet, 650 MG PO Q4H PRN for PAIN, (Reported) Allergies Coded Allergies: No Known Allergies (Unverified , 06/15/09) Past Medical History Medical History 1. Stage IV metastatic ovarian carcinoma. Surgical History Status post bowel resection in the recent past for bowel obstruction secondary to tumor with colostomy. Status post tumor debulking Status post PleurX catheter for previously recurrent pleural effusion A-FIB/CHADSVASC A-FIB History Current/History of A-Fib/PAF?: No Current PO Anticoag Therapy: No Age/Risk Factor Scoring CHADSVASC: CHADSVASC Response (Comments) Value Age Risk Factor Age < 65 years old 0 Gender Risk Factor Female 1 Hx of CHF No 0 Hx of HTN No 0 Hx of Stroke/TIA/or VTE No 0 Hx of Diabetes No 0 Hx of Vascular Disease No 0 Total 1 Review of Systems Constitutional: Denies: Chills, Fever, Night Sweats Eyes: Denies: Pain, Vision change ENT: Denies: Head Aches, Ear Pain, Dysphagia Skin: Denies: Rash, Lesions, Breakdown Pulmonary: Denies: Dyspnea, Cough Cardiovascular: Denies: Chest Pain, Palpitations, Orthopnea, Paroxysmal Noc. Dyspnea, Lt Headedness Gastrointestinal: Reports: Nausea, Vomiting, Abdominal Pain; Denies: Diarrhea, Constipation, Melena Genitourinary: Denies: Dysuria, Frequency, Incontinence, Retention Hematologic: Denies: Bruising, Bleeding Excessively Endocrine: Denies: Polydipsia, Polyphagia, Polyuria, Heat Intolerance, Cold Intolerance, Other Endocrine Sx Musculoskeletal: Denies: Neck Pain, Back Pain, Joint Pain, Muscle Pain, Spasms Neurological: Denies: Weakness, Numbness, Change in speech, Confusion Psych: Reports: Mood Normal; Denies: Depression, Memory Issues Physical Examination General Exam: Positive: Alert, No Acute Distress Eye Exam: Positive: PERRLA, Conjunctiva & lids normal, EOMI; Negative: Sclera icteric ENT Exam: Positive: Atraumatic, Mucous membr. moist/pink, Pharynx Normal Neck Exam: Positive: Supple; Negative: JVD, thyromegaly Chest Exam: Positive: Clear to auscultation, Normal air movement Heart Exam: Positive: Rate Normal, Regular Rhythm, Normal S1, Normal S2; Negative: Murmurs, Rubs Abdomen Exam: Positive: Normal bowel sounds, Soft, Other (distended abdomen with +fluid wave. Mild discomfort with no rebound tenderness and no guarding); Negative: Tenderness, Hepatospenomegaly Extremity Exam: Positive: Normal pulses; Negative: Clubbing, Cyanosis, Edema Skin Exam: Positive: Nl turgor and temperature; Negative: Breakdown, Lesion Neuro Exam: Positive: Normal Speech, Strength at 5/5 X4 ext, Cranial Nerves 3- 12 NL Psych Exam: Positive: Mental status NL, Mood NL, Oriented x 3 Vital Signs Vital Signs Date Time Temp Pulse Resp B/P (MAP) Pulse Ox O2 Delivery O2 Flow Rate FiO2 08/23/19 01:31 98.7 99 18 127/80 (96) 92 Room Air Laboratory Data Labs 24H Laboratory Tests 2 08/22/19 17:29: Immature Granulocyte % (Auto) 0.5, Neutrophils (%) (Auto) 85.5H, Lymphocytes (%) (Auto) 11.0L, Monocytes (%) (Auto) 2.2, Eosinophils (%) (Auto) 0.3, Basophils (%) (Auto) 0.5, Neutrophils # (Auto) 5.4, Lymphocytes # (Auto) 0.7L, Monocytes # (Auto) 0.1, Eosinophils # (Auto) 0.0, Basophils # (Auto) 0.0, Nucleated Red Blood Cells % (auto) 0.0, D-Dimer, Quantitative > 4000.00H, Total Bilirubin 0.5, Direct Bilirubin 0.2, Aspartate Amino Transf (AST/SGOT) 26, Alanine Aminotransferase (ALT/SGPT) 26, Alkaline Phosphatase 112, Total Creatine Kinase 50, Creatine Kinase MB < 1.0, Creatine Kinase MB Relative Index 2.00, Troponin I < 0.02, Total Protein 7.1, Albumin 3.4, Albumin/Globulin Ratio 0.92L, Lipase 105 08/22/19 17:35: POC Glucose (Misc Panel) 104, POC Sodium (Misc Panel) 135L, POC Potassium (Misc Panel) 3.7, POC Chloride (Misc Panel) 97L, POC Total CO2 (Misc Panel) 29.0H, POC Blood Urea Nitrogen (Misc Panel 14, POC Ionized Calcium (Misc Panel) 4.8, POC Creatinine (Misc Panel) 0.5L, POC Hematocrit (Misc Panel) 33.0L 08/22/19 17:44: POC Lactate (Misc Panel) 0.71 08/22/19 20:03: Urine Color YELLOW, Urine Appearance HAZY, Urine pH 5.0, Urine Specific [place] 1.028, Urine Protein 1+H, Urine Glucose (UA) NEGATIVE, Urine Ketones 2+H, Urine Blood NEGATIVE, Urine Nitrite NEGATIVE, Urine Bilirubin NEGATIVE, Urine Urobilin ogen 2.0H, Urine Leukocyte Esterase NEGATIVE, Urine WBC (Auto) 7H, Urine RBC (Auto) 5H, Urine Hyaline Casts (Auto) 0, Urine Bacteria (Auto) NEGATIVE, Urine Squamous Epithelial Cells 0, Urine Mucus (Auto) SMALL, Urine Sperm (Auto) 08/23/19 05:36: CBC/BMP Laboratory Tests 08/22/19 17:29 Assessment/Plan 49 yo white woman with metastatic ovarian carcinoma previously c/b malignant recurrent ascites and right pleural effusion, which was drained with a PleurX catheter. She underwent gynecological debulking at [facility], and subsequently underwent a bowel resection for large bowel obstruction secondary to tumor and has been on chemotherapy who presented with increased abdominal girth and found to have evidence of progression of disease with large ascites pending paracentesis. Ovarian CA: -s/p debulking and on chemotherapy, however with evidence of POD with interval development of diffuse metastatic disease with large volume ascites and small bi lateral pleural effusions -IR consult for paracentesis with studies -Onc consult, or at least reach out to her oncologist with update (it intern onc in [place]) -[facility] discussion and offer palliative care involvement -Pain, well controlled currently with tylenol -zofran IV for nausea DVT ppx: lovenox Diet: regular Dispo: pending IR paracentesis Plan / VTE VTE Prophylaxis Ordered?: Yes TARUN DOMÍNGUEZ MD Aug 23, 2019 06:48
[2019-08-23 07:00] LABS: ALT/SGPT 22 U/L (12-78); BILIRUBIN,TOTAL 0.7 MG/DL (0.2-1.0); BLOOD UREA NITROGEN 12 MG/DL (7-18); CARBON DIOXIDE LEVEL 29 MEQ/L (21-32); CHLORIDE LEVEL 100 MEQ/L (98-107); CREATININE FOR GFR 0.44 MG/DL (0.55-1.30); GLOMERULAR FILTRATION RATE > 60.0 (>51); GLUCOSE, FASTING 75 MG/DL (70-100); MAGNESIUM LEVEL 1.8 MG/DL (1.8-2.4); POTASSIUM SERUM 3.6 MEQ/L (3.5-5.1); SODIUM LEVEL 135 MEQ/L (136-145); TOTAL PROTEIN 6.9 GM/DL (6.4-8.2)
[2019-08-23] MEDS: VITAMIN B COMPLEX/VIT C CAP PO SCH (08:11)
[2019-08-23] MEDS: OMEPRAZOLE 20 MG CAP PO SCH (08:11)
[2019-08-23] MEDS: ENOXAPARIN 40 MG/0.4 ML SYRINGE (J1650) SC SCH (08:11)
[2019-08-23] MEDS: VITAMIN D 1,000 INTERNATIONAL UNITS TABLET PO SCH (08:11)
[2019-08-23] MEDS: ASCORBIC ACID 500 MG TAB PO SCH (08:11)
[2019-08-23] MEDS: OMEGA-3 1000MG CAPSULE PO SCH (08:11)
[2019-08-23] MEDS: CALCIUM CARBONATE 500 MG CHEW U/D PO SCH (08:11)
[2019-08-23] MEDS ORDERED: SENOKOT S TAB PO PRN (12:00)
[2019-08-23] MEDS ORDERED: HYDROMORPHONE HCL 0.5 MG/ 0.5 ML SYRINGE (J1170 PER 1) IV PRN (12:00)
[2019-08-23] MEDS ORDERED: MOM 30ML SUSPENSION UDC PO PRN (12:00)
[2019-08-23] MEDS ORDERED: PERCOCET 5MG/325MG TAB PO PRN ×2 (12:00)
[2019-08-23] MEDS: ACETAMINOPHEN TAB 650MG DOSE (2X325MG) PO PRN (13:16)
[2019-08-23 14:00] VITALS: BP 120/65
[2019-08-23 22:00] VITALS: BP 124/82
[2019-08-24 06:00] VITALS: BP 122/82
[2019-08-24 06:31] LABS: HEMATOCRIT 32.8 % (36.0-47.0); HEMOGLOBIN 10.2 g/dl (12.0-15.5); MEAN CORPUSCULAR HEMOGLOBIN 28.2 pg (27.0-33.0); MEAN CORPUSCULAR HGB CONC 31.1 g/dl (32.0-36.5); MEAN CORPUSCULAR VOLUME 90.6 fl (80.0-96.0); PLATELET COUNT, AUTOMATED 258 10^3/uL (150-450); RED BLOOD COUNT 3.62 10^6/uL (4.00-5.40); WHITE BLOOD COUNT 5.4 10^3/uL (4.0-10.0)
[2019-08-24 06:50] LABS: ALT/SGPT 23 U/L (12-78); BILIRUBIN,TOTAL 0.5 MG/DL (0.2-1.0); BLOOD UREA NITROGEN 12 MG/DL (7-18); CARBON DIOXIDE LEVEL 30 MEQ/L (21-32); CHLORIDE LEVEL 100 MEQ/L (98-107); CREATININE FOR GFR 0.51 MG/DL (0.55-1.30); GLOMERULAR FILTRATION RATE > 60.0 (>51); GLUCOSE, FASTING 77 MG/DL (70-100); POTASSIUM SERUM 3.8 MEQ/L (3.5-5.1); SODIUM LEVEL 135 MEQ/L (136-145); TOTAL PROTEIN 7.1 GM/DL (6.4-8.2)
[2019-08-24] MEDS: VITAMIN D 1,000 INTERNATIONAL UNITS TABLET PO SCH ×2 (09:00→09:34)
[2019-08-24] MEDS: VITAMIN B COMPLEX/VIT C CAP PO SCH ×2 (09:00→09:34)
[2019-08-24] MEDS: OMEGA-3 1000MG CAPSULE PO SCH ×2 (09:00→09:34)
[2019-08-24] MEDS: ASCORBIC ACID 500 MG TAB PO SCH ×2 (09:00→09:36)
[2019-08-24] MEDS: OMEPRAZOLE 20 MG CAP PO SCH (09:34)
[2019-08-24] MEDS: CALCIUM CARBONATE 500 MG CHEW U/D PO SCH (09:34)
[2019-08-24] MEDS: ENOXAPARIN 40 MG/0.4 ML SYRINGE (J1650) SC SCH (09:36)
[2019-08-24] MEDS: SIMETHICONE 80 MG CHEW TAB PO SCH ×4 (13:14→21:00)
[2019-08-24 14:00] VITALS: BP 118/65
[2019-08-24 14:46] LABS: INR 1.15; PROTHROMBIN TIME 14.4 SECONDS (11.8-14.0)
[2019-08-24 14:47] LABS: PARTIAL THROMBOPLASTIN TIME 34.8 SECONDS (25.0-38.4)
--- NOTE | 2019-08-24 18:36 | IPN ---
DATE: 08/23/2019 The patient complains of 7 out of 10 pain while lying down supine across the abdomen with increasing abdominal distention, has some nausea but without any vomiting. Tolerating her diet this morning. PHYSICAL EXAMINATION: Temperature 98.2, pulse 97, respiratory rate 18, blood pressure 124/80, 93% on room air. GENERAL: The patient is awake, alert, oriented to person, place and time. There is no jaundice. No respiratory distress. Speaking in full sentences. LUNGS: Clear to auscultation with no wheezing, rales or rhonchi. HEART: S1, S2. Sinus rhythm. ABDOMEN: Distended. Positive bowel sounds. Soft, tender in the epigastrium. No rebound or guarding. No hepatosplenomegaly. EXTREMITIES: No pitting edema. LABORATORY DATA: White count 6.8, hemoglobin 9.5, hematocrit 32, platelet count 275. Sodium 135, potassium 3.6, chloride 100, bicarbonate 29, BUN 12, creatinine 0.44, glucose 75. CT of the abdomen and pelvis with progressive metastatic disease with new skeletal metastases and probable peritoneal or omental implants. Status post debulking procedure for ovarian cancer and ostomy large volume, likely mucinous ascites. No bowel obstruction. Diffuse edematous appearance of the stomach, nonspecific, without evidence of obstruction. ASSESSMENT AND PLAN: This is a 49-year-old female with metastatic adenocarcinoma with ovarian as primary diagnosed 04/10/2019 and underwent debulking surgery and undergoing chemotherapy in [place]. The patient returns with worsening ascites and progressive disease to the bone found on repeat CT of the abdomen and pelvis. The patient is admitted for pain control and drainage of the ascitic fluid. IMPRESSION: 1. Metastatic ovarian cancer. Undergoing chemotherapy in [place]. Obtain records and contact the patient's medical oncologist in [place]. Symptomatic relief with paracentesis, therapeutic, as well as evaluation for skeletal metastases for pain control. MTDD
[2019-08-24] MEDS ORDERED: ONDANSETRON 4 MG TAB (S0181) PO PRN (18:45)
[2019-08-24] MEDS: ACETAMINOPHEN TAB 650MG DOSE (2X325MG) PO PRN (20:07)
[2019-08-24 22:00] VITALS: BP 122/83
[2019-08-25 06:00] VITALS: BP 121/83
[2019-08-25 06:03] LABS: HEMATOCRIT 31.8 % (36.0-47.0); HEMOGLOBIN 9.8 g/dl (12.0-15.5); MEAN CORPUSCULAR HEMOGLOBIN 27.3 pg (27.0-33.0); MEAN CORPUSCULAR HGB CONC 30.8 g/dl (32.0-36.5); MEAN CORPUSCULAR VOLUME 88.6 fl (80.0-96.0); PLATELET COUNT, AUTOMATED 227 10^3/uL (150-450); RED BLOOD COUNT 3.59 10^6/uL (4.00-5.40); WHITE BLOOD COUNT 4.9 10^3/uL (4.0-10.0)
[2019-08-25 06:33] LABS: ALT/SGPT 20 U/L (12-78); BILIRUBIN,TOTAL 0.4 MG/DL (0.2-1.0); BLOOD UREA NITROGEN 12 MG/DL (7-18); CARBON DIOXIDE LEVEL 32 MEQ/L (21-32); CHLORIDE LEVEL 99 MEQ/L (98-107); CREATININE FOR GFR 0.39 MG/DL (0.55-1.30); GLOMERULAR FILTRATION RATE > 60.0 (>51); GLUCOSE, FASTING 85 MG/DL (70-100); POTASSIUM SERUM 3.5 MEQ/L (3.5-5.1); SODIUM LEVEL 135 MEQ/L (136-145); TOTAL PROTEIN 6.9 GM/DL (6.4-8.2)
[2019-08-25] MEDS: OMEPRAZOLE 20 MG CAP PO SCH (08:28)
[2019-08-25] MEDS: OMEGA-3 1000MG CAPSULE PO SCH (08:28)
[2019-08-25] MEDS: VITAMIN B COMPLEX/VIT C CAP PO SCH (08:28)
[2019-08-25] MEDS: VITAMIN D 1,000 INTERNATIONAL UNITS TABLET PO SCH (08:28)
[2019-08-25] MEDS: ASCORBIC ACID 500 MG TAB PO SCH (08:28)
[2019-08-25] MEDS: SIMETHICONE 80 MG CHEW TAB PO SCH ×2 (08:29→13:00)
[2019-08-25] MEDS: CALCIUM CARBONATE 500 MG CHEW U/D PO SCH (08:29)
--- NOTE | 2019-08-25 11:13 | IPN ---
DATE OF SERVICE: 08/24/2019 The patient still complains of achy discomfort 5/10 pain across the abdomen. Paracentesis could not be performed due to recent Lovenox given this morning. No fever. No chills. No nausea or vomiting. The patient is refusing pain medications. No shortness of breath, chest pain, pressure, tightness, lightheadedness, or dizziness. Temperature 98.7, pulse 99, respiratory rate 18, blood pressure 122/82, 94% on room air. Generally, the patient is able to speak in full sentences. No conversational dyspnea. No jugular venous distention (JVD). No thyromegaly. No cervical lymphadenopathy. Dry mucous membranes. diminished at bilateral bases. Heart: S1, S2. Sinus rhythm. Abdomen: Distended. Positive bowel sounds. Positive fluid wave. Tender diffusely. No rebound or guarding. LABORATORY DATA: White count 5.4, hemoglobin 10, hematocrit 32, platelet count 258. Sodium 137, potassium 3.8, chloride 100, bicarbonate 30, BUN 12, creatinine 0.5, glucose of 77, total bilirubin (T Bili) 0.5, AST 27, ALT 23, alkaline phosphatase 107. ASSESSMENT AND PLAN: This is a 49-year-old female with recent diagnosis of ovarian cancer, status post debulking surgery, on chemotherapy, status post PleurX catheter and paracentesis, presented to the emergency room with anorexia and shortness of breath, increasing abdominal girth and distention. The patient was admitted for intractable abdominal pain. ACUTE ISSUES: Stage IV metastatic ovarian cancer, status post bowel resection due to tumor with debulking surgery, status post a PleurX catheter for current pleural effusion. The patient is to undergo paracentesis. She has a followup appointment with her medical oncologist on . May be discharged home after paracentesis tomorrow.
[2019-08-25 13:15] VITALS: BP 128/84
--- NOTE | 2019-08-25 13:15 | DS.PDOC ---
Discharge Summary General Date of Admission Aug 22, 2019 at 22:53 Date of Discharge 08/25/2019 Discharge Summary PROCEDURES PERFORMED DURING STAY: 08/25/2019: Paracentesis ADMITTING DIAGNOSES / DISCHARGE DIAGNOSES: Abdominal distension - 2/2 recurrent ascites Stage IV metastatic ovarian cancer; s/p bowel resection, s/p debulking surgery Hx of Pleural effusions - s/p PleurX catheter Hx of Ascites - 2/2 malignancy DVT prophylaxis COMPLICATIONS/CHIEF COMPLAINT: Abdominal distension HISTORY OF PRESENT ILLNESS: Patient is a 49-year-old female with past medical history of metastatic ovarian carcinoma with malignant ascites and R pleural effusions (Drained by PleurX catheter, [place] resection for large bowel obstruction, on chemotherapy. Patient presented to the emergency room with complaints of shortness of breath as well as abdominal distention. Was found to have large ascites and was admitted to hospitalist service for further evaluation and treatment HOSPITAL COURSE: Patient was admitted to hospitalist service on 08/23/2019 for worsening abdominal distention secondary to ascites. Patient was planned for abdominal paracentesis to be completed on admission, however, was postponed for one additional day after she had received Lovenox. Patient has received a paracentesis performed on 08/25/2019. Patient will be following up with her primary care provider as well as oncology within the next 7 days she's been advised to remain compliant with treatment plan and medications and return to the emergency room if she experie nces any problems. DISCHARGE MEDICATIONS: Please see below. ALLERGIES: Please see below. PHYSICAL EXAMINATION ON DISCHARGE: Vitals (See below) General: Lying in bed, comfortable, AAOx3 HEENT: NC, AT CVS: RRR, +S1S2 Lungs: Fair air entry b/l, -w/r/r Abdomen: Soft, non-tender Extremities: - Edema, - Calf tenderness LABORATORY DATA: Please see below. IMAGING: CTA chest 08/22: 1. No evidence of acute pulmonary embolus. 2. Bilateral pleural effusions and atelectasis with no underlying active pulmonary edema or pneumonia. 3. Incompletely imaged intra-abdominal free fluid. 4. Multiple new axial and appendicular skeleton sclerotic lesions which are concerning for metastatic disease CT ab/pelv 08/22: Progressive metastatic disease with new skeletal metastases, and probable peritoneal or omental implants in a patient who has undergone a debulking procedure for ovarian cancer and ostomy. Large volume likely mucinous ascites. No evidence of bowel obstruction. Diffusely edematous appearance of the stomach, nonspecific, without evidence of obstruction PROGNOSIS: Guarded ACTIVITY: [As tolerated]. DISCHARGE PLAN: Follow up with PCP and Oncology within 7 days Remain compliant with treatment plan and medications Return to the ER if you experience any problems DISPOSITION: Home with services DISCHARGE CONDITION: [Stable]. TIME SPENT ON DISCHARGE: 35 minutes Vital Signs/I&Os Vital Signs Date Time Temp Pulse Resp B/P (MAP) Pulse Ox O2 Delivery O2 Flow Rate FiO2 08/25/19 12:00 98.9 101 18 96 Room Air 08/25/19 06:00 121/83 (96) I&O- Last 24 Hours up to 6 AM 08/25/19 05:59 Intake Total 1210 ml Output Total 0 ml Balance 1210 ml Laboratory Data Labs 24H Laboratory Tests 2 08/24/19 14:12: Prothrombin Time 14.4H, Prothromb Time International Ratio 1.15, Activated Partial Thromboplast Time 34.8 08/25/19 05:37: Nucleated Red Blood Cells % (auto) 0.0, Anion Gap 4L, Glomerular Filtration Rate > 60.0, Calcium Level 9.0, Total Bilirubin 0.4, Aspartate Amino Transf (AST/SGOT) 19, Alanine Aminotransferase (ALT/SGPT) 20, Alkaline Phosphatase 99, Total Protein 6.9, Albumin 3.0L, Albumin/Globulin Ratio 0.77L CBC/BMP Laboratory Tests 08/25/19 05:37 Discharge Medications Scheduled Ascorbic Acid (Vitamin C) 500 Mg Cap, 500 MG PO DAILY, (Reported) B-Complex with Vitamin C (Vitamin B-Complex & C) 1 Each Tablet.er, 1 TAB PO DAILY, (Reported) Calcium Carbonate (Calcium Carbonate) 600 Mg Tab, 600 MG PO DAILY, (Reported) Cholecalciferol (Vitamin D3) (Vitamin D3) 2,000 Unit Tablet, 2,000 UNIT PO DAILY, (Reported) [place]-3S/Dha/Epa/Fish Oil (Fish Oil Dr 1,000 mg Softgel) 1 Cap Cap, 1 CAP PO DAILY, (Reported) Omeprazole (Omeprazole) 20 Mg Tab, 20 MG PO DAILY, (Reported) Scheduled PRN Acetaminophen (Tylenol) 325 Mg Tablet, 650 MG PO Q4H PRN for PAIN, (Reported) Allergies Coded Allergies: No Known Allergies (Unverified , 06/15/09) MONO KING MD Aug 25, 2019 13:15
[2019-08-25 13:53] LABS: SOURCE, BODY FLUID ALBUMIN ASCITES; SOURCE, BODY FLUID GLUCOSE ASCITES; SOURCE, BODY FLUID TOT PROTEIN ASCITES
[2019-08-25 13:59] LABS: APPEARANCE, BODY FLUID HAZY (CLEAR); ASCITES FL COLOR YELLOW (COLORLESS); SOURCE, BODY FLUID ASCITES
--- NOTE | 2019-08-26 22:29 | REP ---
Ultrasound-guided paracentesis The procedure was performed by CHIARA Loza, under the direct supervision of Dr. Saucedo. The risks and benefits of the procedure were explained to the patient and informed consent was obtained both verbally and written. Directly prior to the start of the procedure, a formal timeout was completed in the procedure room. Under ultrasound guidance, the largest pocket of fluid in the right flank was localized and skin was marked. The skin was then prepped and draped in a sterile fashion. 10 ml of 1% lidocaine 10 mg/ml was used as a local anesthetic. Using ultrasound guidance, an 8-[place] multi side-hole catheter was inserted using trocar technique. 1,100 mL of clear yellow colored fluid was withdrawn, 200 ml was sent to the lab for further analysis, and the rest was discarded. The patient tolerated the procedure well and there were no immediate complications. After the appropriate monitored convalescence the patient was discharged from the department. Reviewed by CHIARA Lockhart 08/25/2019 01:12 P Electronically Signed by Jake Saucedo MD 08/26/2019 10:20 P
== END 2019-08-25 14:25 | disposition home or self-care (01) | DRG 240 ==
LOC: M ED 17:01 → M ED INP 22:53 → ENRESERV 23:24 → M MSPAV 08-23 01:30
PROVIDERS: ADMIT Internal Medicine; ATTEND Internal Medicine
PROC: 0W9G3ZZ Drainage of Peritoneal Cavity, Percutaneous Approach (ICD-10-PCS; principal; 2019-08-25 15:00)
DX: C78.6 Secondary malignant neoplasm of retroperitoneum and peritoneum (principal); R18.0 Malignant ascites; C79.51 Secondary malignant neoplasm of bone; C56.9 Malignant neoplasm of unspecified ovary; Z79.899 Other long term (current) drug therapy

== ENCOUNTER 2019-09-09 11:14 | Emergency (ER) | payer BC ==
[~2019-09-09] VITALS: Ht 160 cm; Wt 50.3 kg
[~2019-09-09 11:14] MED LIST changes: +D32000TA PO
[2019-09-09] MEDS ORDERED: OXYC-517 (11:33)
[2019-09-09 13:12] LABS: HEMATOCRIT 37.3 % (36.0-47.0); HEMOGLOBIN 11.1 g/dl (12.0-15.5); MEAN CORPUSCULAR HEMOGLOBIN 27.1 pg (27.0-33.0); MEAN CORPUSCULAR HGB CONC 29.8 g/dl (32.0-36.5); MEAN CORPUSCULAR VOLUME 91.2 fl (80.0-96.0); PLATELET COUNT, AUTOMATED 273 10^3/uL (150-450); RED BLOOD COUNT 4.09 10^6/uL (4.00-5.40); WHITE BLOOD COUNT 5.9 10^3/uL (4.0-10.0)
[2019-09-09 13:44] LABS: ALBUMIN 3.3 GM/DL (3.2-5.2); ALT/SGPT 23 U/L (12-78); BILIRUBIN,TOTAL 0.2 MG/DL (0.2-1.0); BLOOD UREA NITROGEN 13 MG/DL (7-18); CALCIUM LEVEL 9.2 MG/DL (8.5-10.1); CARBON DIOXIDE LEVEL 32 MEQ/L (21-32); CHLORIDE LEVEL 99 MEQ/L (98-107); CREATININE FOR GFR 0.46 MG/DL (0.55-1.30); GLOMERULAR FILTRATION RATE > 60.0 (>51); GLUCOSE, FASTING 95 MG/DL (70-100); POTASSIUM SERUM 3.9 MEQ/L (3.5-5.1); SODIUM LEVEL 138 MEQ/L (136-145); TOTAL PROTEIN 7.1 GM/DL (6.4-8.2)
[2019-09-09 15:20] LABS: APPEARANCE, BODY FLUID CLEAR (CLEAR); PLEURAL FL COLOR YELLOW (COLORLESS); SOURCE, BODY FLUID PLEURAL
[2019-09-09 15:40] LABS: LDH, BODY FLUID 117 U/L (NOT ESTABLISHED); SOURCE, BODY FLUID GLUCOSE PLEURAL; SOURCE, BODY FLUID LDH PLEURAL; SOURCE, BODY FLUID TOT PROTEIN PLEURAL; TOTAL PROTEIN, BODY FLUID 5.1 G/DL (NOT ESTABLISHED)
[2019-09-09 15:45] VITALS: BP 118/74
--- NOTE | 2019-09-09 16:13 | REP ---
Ultrasound-guided paracentesis The procedure was performed under the direct supervision of Dr. Ying. The risks and benefits of the procedure were explained to the patient and informed consent was obtained. The largest pocket of fluid was localized in the right flank using ultrasound guidance. The skin was prepped and draped in a sterile fashion. 1% lidocaine was used as a local anesthetic. An 8-[place] multi side-hole catheter was inserted using trocar technique. 1000 ml of clear yellow fluid was withdrawn with a sample sent to the lab for analysis. The patient tolerated the procedure well and there were no immediate complications. After the appropriate amount of monitored convalescence the patient was discharged from the department. Electronically Signed by CHIARA Bass 09/09/2019 03:39 P Electronically Signed by Feng Ying MD 09/09/2019 04:04 P
== END 2019-09-09 16:00 | disposition home or self-care (01) ==
LOC: M ED 11:14
DX: R18.0 Malignant ascites (principal); C56.9 Malignant neoplasm of unspecified ovary; J90 Pleural effusion, not elsewhere classified; Z87.891 Personal history of nicotine dependence; Z79.899 Other long term (current) drug therapy

== ENCOUNTER → 2019-09-16 | Outpatient (CLI) | payer BC ==
[~2019-09-16] MED LIST changes: +OXYC-517; +PROT20TA11 PO
[2019-09-16 14:44] VITALS: BP 123/80
--- NOTE | 2019-09-16 16:32 | REP ---
Ultrasound-guided paracentesis The procedure was performed by CHIARA Loza, under the direct supervision of Dr. Ying. The risks and benefits of the procedure were explained to the patient and informed consent was obtained both verbally and written. Directly prior to the start of the procedure, a formal timeout was completed in the procedure room. Under ultrasound guidance, the largest pocket of fluid in the right flank was localized and skin was marked. The skin was then prepped and draped in a sterile fashion. 8 ml of 1% lidocaine 10 mg/ml was used as a local anesthetic. Using ultrasound guidance, an 8-[place] multi side-hole catheter was inserted using trocar technique. 700 mL of clear yellow colored fluid was withdrawn and discarded. The patient tolerated the procedure well and there were no immediate complications. After the appropriate monitored convalescence the patient was discharged from the department. Reviewed by CHIARA Lockhart 09/16/2019 03:10 P Electronically Signed by Feng Ying MD 09/16/2019 04:23 P
== END ==
LOC: M IRPRO 12:58
PROVIDERS: ATTEND Obstetrics & Gynecology Gynecologic Oncology
DX: C56.1 Malignant neoplasm of right ovary (principal); C56.2 Malignant neoplasm of left ovary